=== PATIENT | female | born 1975 | race Caucasian/White ===

== ENCOUNTER → 2019-05-15 13:52 | Outpatient (BNVA) | payer MEDICARE, MEDICAID, SELFPAY | PROVIDERS: Family Provider Family Medicine; PCP Family Medicine; Visit Provider Nurse Practitioner Psychiatric/Mental Health | DX: F31.74 Bipolar disorder, in full remission, most recent episode manic (principal); F43.22 Adjustment disorder with anxiety | CPT/HCPCS: 99213 ==

== ENCOUNTER → 2019-06-08 08:43 | Outpatient (BNVA) | payer MEDICARE, MEDICAID, SELFPAY | PROVIDERS: Family Provider Family Medicine; PCP Family Medicine; Referring Provider Family Medicine; Visit Provider Otolaryngology | DX: J35.01 Chronic tonsillitis (principal); J03.91 Acute recurrent tonsillitis, unspecified; J35.8 Other chronic diseases of tonsils and adenoids | CPT/HCPCS: 99213; 99214 ==

== ENCOUNTER → 2019-06-22 08:47 | Outpatient (BNVA) | payer MEDICARE, MEDICAID, SELFPAY | PROVIDERS: Family Provider Family Medicine; PCP Family Medicine; Visit Provider Nurse Practitioner Psychiatric/Mental Health | DX: F31.74 Bipolar disorder, in full remission, most recent episode manic (principal); F43.22 Adjustment disorder with anxiety | CPT/HCPCS: 99213 ==

== ENCOUNTER → 2019-06-29 13:59 | Outpatient (BNVA) | payer MEDICARE, MEDICAID, SELFPAY | PROVIDERS: Family Provider Family Medicine; PCP Family Medicine; Referring Provider Otolaryngology; Visit Provider Specialist | DX: G43.711 Chronic migraine without aura, intractable, with status migrainosus (principal); S06.9X9D Unspecified intracranial injury with loss of consciousness of unspecified duration, subsequent encounter; X58.XXXD Exposure to other specified factors, subsequent encounter | CPT/HCPCS: 99204; 99214 ==

== ENCOUNTER → 2019-07-17 13:23 | Outpatient (BNVA) | payer MEDICARE, MEDICAID, SELFPAY | PROVIDERS: Family Provider Family Medicine; PCP Family Medicine; Visit Provider Nurse Practitioner Psychiatric/Mental Health | DX: F31.74 Bipolar disorder, in full remission, most recent episode manic (principal); F43.22 Adjustment disorder with anxiety | CPT/HCPCS: 99213 ==

== ENCOUNTER 2019-07-18 05:49 | Day surgery (SDC) | payer MEDICARE, MEDICAID, SELFPAY ==
[2019-07-14 13:24] VITALS: BMI 31.2
--- NOTE | 2019-07-14 13:42 | ANES.PREANE2 ---
Pre-Anesthetic Assessment Pre-Anesthetic Assessment: Height/Weight: Height 1.52 m Weight 72.575 kg Preop Diagnosis: Undesired Fertility Proposed Procedure: Operation Date: 07/18/19 07:55 Proposed Procedures p Yoselyn Shankar,Removal of Tubes Sterilization 23463 Z30.2(Not Applicable) - Gregorio Pang MD Familial anesthetic complications: PONV - patient will pick scopolamine patch, she has severe PONV - highly consider TIVA Social: Social History: No alcohol and No tobacco Exam: Pre-Anes Outpt Exam: alert, oriented x 3, clear to auscultation bilaterally and regular rate & rhythm Airway: Cervical ROM: WNL MP: 1 Dentition: Full Additional comments: Large tonsils Patient sings and is worried about her voice Pulmonary: Pulmonary: None reported CV/HEM: CV/HEM: None reported : : None reported Hepatic: Hepatic: None reported GI: GI: None reported Metabolic: Metabolic: Thyroid Comments: has had thyroid storm Musc/skel: Musc/skel: Lower Back Pain Comments: can develop Extrapyramidal symptoms Neuropsych: Neuropsych: 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
[2019-07-18] VITALS (10 sets, daily range): BP systolic 94–135; BP diastolic 56–89; PULSE 60–89; RESP 14–20; TEMP 36.8–36.9; O2SAT 98–100
[2019-07-18 05:58] LABS: OR HCG Qualitative Urine Negative (Negative)
--- NOTE | 2019-07-18 06:17 | P.ANESUD_ITS ---
Pre-Anesthetic Update Pre-Anesthetic Assessment: Date of Surgery/Procedure: 07/18/19 Preop Mariah gnosis: Undesired Fertility Proposed Procedure: Operation Date: 07/18/19 07:00 Proposed Procedures p Yoselyn Shankar,Removal of Tubes Sterilization 54642 Z30.2(Not Applicable) - Gregorio Pang MD Any changes to Pre-Anesthetic Assessment?: No Last Intake: Intake NPO > 8 hrs Last Liquid Date 07/18/19 Last Liquid Time 00:00 Last Solid Date 07/18/19 Last Solid Time 00:00 Labs Last 48hrs: Laboratory Results - last 48 hr 07/18/19 05:51 Urine HCG, Qual Negative Vitals: Temperature 98.3 F 07/18/19 06:07 Temperature Source Tympanic 07/18/19 06:07 Pulse Rate 70 07/18/19 06:07 Pulse Rhythm 07/18/19 06:07 Pulse Strength 3+ Normal 07/18/19 06:07 Respiratory Rate 18 07/18/19 06:07 Blood Pressure 94/56 07/18/19 06:07 Blood Pressure Maria M n 68 07/18/19 06:07 Pulse Oximetry 99 07/18/19 06:07 Oxygen Delivery Me thod 07/18/19 06:07 Exam: Pre-Anes Outpt Exam: alert, oriented x 3, clear to auscultation bi laterally and regular rate & rhythm Other Pertinent Information: Other Pertinent Information: Took levothyroxine this morning Cardiac Studies: No Data to Display
[2019-07-18] MEDS: ketorolac 30 mg/mL INJ IVP (06:35)
[2019-07-18] MEDS: sodium chloride 0.9% 1,000 ML 30 ML IV (06:35)
[2019-07-18 06:40] LABS: Basophils % 0.5 %; Eosinophils # 0.1 10^3/uL (0.0-0.8); Eosinophils % 1.1 %; Hematocrit 34.6 % (37.0-47.0); Hemoglobin 11.5 g/dL (11.5-15.3); Lymphocytes # 2.8 10^3/uL (0.8-4.8); Lymphocytes % 44.4 %; Mean Corpuscular HGB Conc 33.2 g/dL (30.0-36.0); Mean Corpuscular Volume 84.2 fL (81-99); Monocytes # 0.4 10^3/uL (0.2-0.9); Monocytes % 6.7 %; Neutrophils % 47.3 %; Nucleated Red Blood Cells % 0 %; Platelet Count 251 10^3/cmm (130-400); Red Blood Count 4.11 10^6/uL (4.1-5.3); White Blood Count 6.2 10^3/uL (4.0-10.0)
--- NOTE | 2019-07-18 06:48 | W.PM.OPSUD ---
Surgery/Procedure H&P Update DATE OF PROCEDURE: July 18, 2019 DATE H&P PERFORMED: 07/14/19 H&P UPDATE INFORMATION: I have reviewed H&P completed within last 30 days, I have examined patient prior to procedure, No changes to prior documentation and [place] [facility] date indicated PREOP DIAGNOSIS: Undesired Fertility PLANNED PROCEDURE: Operation Date: 07/18/19 07:00 Proposed Procedures p Lap Fulg,Removal of Tubes Sterilization 08181 Z30.2(Not Applicable) - Gregorio Pang MD
--- NOTE | 2019-07-18 08:02 | P.OP_ITS ---
Operative Report Date of procedure: July 18, 2019 Pre-op Diagnosis: Undesired Fertility Post-op Diagnosis: Undesired fertility Procedure Done: Laparoscopic bilateral tubal fulguration with complete salpingectomy Specimens removed/disposition: Right and left fallopian tubes Surgeon: Gregorio Pang Software Tools Developer: JAYNA Olvera Anesthesia: General Estimated blood loss (mL): 10 IV fluids (mL): 900 Complications: None Brief History: Patient is a 43-year-old white female 2, para 0-0-2-0 who presented to the office on 06/02/2019 requesting sterilization. She stated that she did not want any children and wanted to proceed with sterilization. Medicaid consent form was signed on 06/02/2019. She returned to the office on 07/14/2019 stating that she still wished to proceed with sterilization. Permanence of the procedure was reviewed with her. Inability of complete removal of tubes to be reversed was reviewed. Risks of the procedure including failure rates and risk for ectopic were reviewed. Questions were answered. She still wished to proceed with complete removal of tubes. Procedure: The patient was taken to the operating room where general anesthesia was obtained. She was prepped and draped in the usual sterile fashion in the dorsal supine position with legs in Zechariah style stirrups. Sequential compression boots were placed prior to starting the case. Bladder was drained and exam under anesthesia was performed. She was found to have first-degree uterine prolapse. Weighted speculum was placed in the vagina and the cervix was grasped with a single-tooth tenaculum. A ZUMI was placed. The infraumbilical region was injected with 2% lidocaine with epinephrine. Skin incision was made with a knife in the lower edge of the navel and a size 5 trocar and sheath were inserted under direct visualization using an Optiview type technique. Trocar was removed and replaced with just the laparoscope confirming intra-abdominal placement. The anterior abdominal wall was inspected and noted to be free of adhesions. In the right and left lower quadrants lateral to the inferior epigastric vessels, the skin was injected with 2% lidocaine with epinephrine. Skin incision was made with the knife and a 5 mm trocar and sheath were inserted under direct visualization at each site. The pelvis was thoroughly inspected. Both tubes and ovaries appeared normal. She had a few filmy adhesions of the sigmoid along the left pelvic brim. She was also noted to have an anterior subserosal uterine fibroid. Using the Voyant sealing device, the left mesosalpinx was sealed and cut along the length of the fallopian tube. At the cornual region of the uterus, the fallopian tube was sealed and cut, completely excising the tube. The tube was removed through the port. Using the Voyant sealing device, the right mesosalpinx was sealed and cut along the length of the fallopian tube. At the cornual region of the uterus, the fallopian tube was sealed and cut, completely excising the tube. Tube was removed through the port. The dissection areas were noted to be hemostatic. The abdomen was deflated and the ports removed. The trocar sites were reapproximated with Dermabond. The ZUMI was removed and there was minimal bleeding from the tenaculum site. Patient tolerated the procedures well. Sponge and needle counts were correct. DRAINS: None FINDINGS: First degree uterine prolapse. Anterior subserosal uterine fibroid present. Normal-appearing tubes and ovaries. Filmy adhesions of the sigmoid along the left pelvic brim. POSTOPERATIVE STATUS: The patient was transferred to the recovery room in satisfactory condition. DISPOSITION: Patient was to be discharged home when criteria was met. FOLLOWUP APPOINTMENT: Patient was to followup in my office on 08/03/2019. PRESCRIPTIONS: She had prescriptions at home for: Tramadol 50 mg, 1 to 2 tablets every 6 hours as needed for pain OTC ibuprofen 200 mg, 4 tablets 3 times a day as needed for pain She was to continue her usual home medications.
--- NOTE | 2019-07-18 08:23 | SUR.PHASEI ---
0830 ORAL AIRWAY REMOVED, PT ABLE TO MAINTAIN PATENT AIRWAY
[2019-07-18] MEDS: TRAMadol 50 mg Tablet PO (09:07)
== END 2019-07-18 10:22 | disposition home or self-care (01) ==
PROVIDERS: Family Provider Family Medicine; PCP Family Medicine; Visit Provider Obstetrics & Gynecology
PROC: (CPT 58661; principal; 2019-07-18 07:00)
DX: Z30.2 Encounter for sterilization (principal); Z82.49 Family history of ischemic heart disease and other diseases of the circulatory system; Z83.3 Family history of diabetes mellitus; G62.9 Polyneuropathy, unspecified; Z86.73 Personal history of transient ischemic attack (TIA), and cerebral infarction without residual deficits
CPT/HCPCS: 58670; 12345; 36415; 81025; 84703; 85025; 88302; 96374; J0131; J1100; J1200; J1885; J2001; J2250; J2405; J2704; J2710; J2765; J3010; J3490; J7030

== ENCOUNTER 2019-07-25 20:41 | Emergency (ER) | payer MEDICARE, MEDICAID, SELFPAY ==
[2019-07-25 20:57] VITALS: BP 140/77; PULSE 103; RESP 16; TEMP 37.1; O2SAT 99; BMI 31.2
[2019-07-25 23:24] VITALS: BP 96/68; PULSE 87; RESP 16; O2SAT 98
--- NOTE | 2019-07-26 02:08 | ED_ITS ---
HPI - Allergic Reaction General: Chief complaint: Allergic Reaction Stated complaint: possible infection Time Seen by Provider: 07/26/19 01:22 Source: patient Mode of arrival: ambulatory Limitations: no limitations History of Present Illness: HPI narrative: Patient is a very pleasant 43-year-old female who presents to ED today wanting evaluation for some redness surrounding her surgical incisions. Patient underwent laparoscopic bilateral tubal fulguration with complete salpingectomy by Dr. Pang approximately a week ago. Patient states over the past few days she has noticed redness surrounding her surgical incisions. She reports wound dehiscence to her umbilical incision- she saw Dr. Pang as a postop for this. At that visit patient had some bruising like lugo around her incisions but states since then they have gotten red and are intensely pruritic. She is not having any abdominal pain. No fever/chills. MD complaint: allergic reaction Onset (ago): day(s) Associated symptoms: Reports no associated symptoms; Deny abdominal pain, nausea or vomiting Review of Systems Const: Denies: fever, chills, body aches, change in appetite, change in weight or fatigue GI: Denies: abdominal pain, nausea, vomiting or diarrhea Musc: Denies: neck pain or back pain Skin/Breast: Reports: itching and other (redness around surgical incisions) PFSH ED PFSH: Social History Smoking and tobacco status: never smoked Alcohol intake: former History of recent travel: No Female Reproductive History: Date of last menstrual period: 06/15/19 Physical Exam Const: COMMON NORMALS: no apparent distress, average body habitus, oriented x3, no limitations, healthy appearing, alert and well nourished GI: OTHER: Patient has rings of erythema around both of her inferior incisions. The erythema does not appear cellulitic. It is not warm to touch. There is no drainage from the incisions. She does have some erythema as well around her umbilical incision where she has overlying tape. Patient tells me she does have a history allergic reactions to adhesives. Neuro: COMMON NORMALS: oriented x3 SENSORIUM/ORIENTATION: Yes alert Course Vital Signs: Vital signs: Vital Signs Temperature 98.8 F 07/25/19 20:57 Pulse Rate 87 07/25/19 23:24 Respiratory Rate 16 07/25/19 23:24 Blood Pressure 96/68 07/25/19 23:24 Pulse Oximetry 98 07/25/19 23:24 MDM - Allergic Reaction MDM Narrative: Medical decision making narrative: Patient has a history of allergy to adhesives, she has redness around all 3 surgical incisions, redness does not appear cellulitic, she does not complain of pain but rather of extreme itchiness. Given these factors I do not feel patient has any form of infection at this time. Most likely she is just reacting to the surgical glue used. Explained to patient this should hopefully fall off in the next couple of days. She may try Benadryl and hydrocortisone cream to help with the itching as well as applying cold compresses. Recommend she go ahead and alert Dr. Pang tomorrow so he is aware and could see patient if needed. Discharge Plan Discharge Patient Disposition: Home, Self-Care Clinical Impression: Allergy to adhesive Condition: Stable Prescriptions: No Action Metamucil 3.4 gram/5.4 gram powder 1 tbsp PO BID RF: 0 benztropine 1 mg tablet 1 mg PO DAILY PRN (Reason: Extrapyramidal Effects/Symptoms) RF: 0 melatonin 3 mg capsule 2 mg PO .QHS PRN (Reason: sleep) RF: 0 levothyroxine 112 mcg capsule 112 mcg PO DAILY RF: 0 liothyronine 5 mcg tablet 5 mcg PO TID RF: 0 naltrexone 50 mg tablet 2 mg PO .QHS RF: 0 cholecalciferol (vitamin D3) 50,000 unit capsule 50,000 unit PO .weekly RF: 0 polyethylene glycol 3350 [Miralax] 17 gram/dose powder 17 gm PO BID RF: 0 Invega Sustenna 39 mg/0.25 mL syringe 39 mg IM .Q4 weeks Qty: 0.25 RF: 12 scopolamine base 1 mg over 3 days patch 3 day 1 patch TRANSDERMA Q3D Qty: 1 RF: 0 tramadol 50 mg tablet See Rx Instructions PO .every 6 hours PRN (Reason: pain) Qty: 30 RF: 0 Linzess 145 mcg capsule 145 mcg PO .NOON Qty: 30 RF: 3 Discharge Orders: Discharge Order (Routine); Ordered 07/26/19 Ordered By: Rossy Brumfield Referrals: Kirill Jarquin [Primary Care Provider] - Discharge Diet: Usual diet Discharge Activity: Increase activity as tolerated Activity Restrictions/Additional Instructions: As discussed you may try Benadryl for the itching. Cold compresses (not directly on your skin) may also help. You can try a small amount of hydrocortisone cream. Please contact Dr. Pang tomorrow so he is aware. Coding Level of Care Code ED Printing Machine Operator Tape Rules for Mckenna Angelo
[2019-07-26 02:43] VITALS: BP 124/77; PULSE 89; RESP 18; O2SAT 97
[2019-07-26 02:44] VITALS: BP 124/77; PULSE 89; RESP 18; O2SAT 97
== END 2019-07-26 02:48 | disposition home or self-care (01) ==
PROVIDERS: Emergency Provider Physician Assistant; Family Provider Family Medicine; PCP Family Medicine
DX: T78.49XA Other allergy, initial encounter (principal); X58.XXXA Exposure to other specified factors, initial encounter; Z98.890 Other specified postprocedural states
CPT/HCPCS: 12345; 99281

== ENCOUNTER → 2019-08-14 08:48 | Outpatient (BNVA) | payer MEDICARE, MEDICAID, SELFPAY | PROVIDERS: Family Provider Family Medicine; PCP Family Medicine; Visit Provider Nurse Practitioner Psychiatric/Mental Health | DX: F31.74 Bipolar disorder, in full remission, most recent episode manic (principal); F43.22 Adjustment disorder with anxiety | CPT/HCPCS: 99213 ==

== ENCOUNTER → 2019-09-11 07:28 | Outpatient (BNVA) | payer MEDICARE, MEDICAID, SELFPAY | PROVIDERS: Family Provider Family Medicine; PCP Family Medicine; Visit Provider Nurse Practitioner Psychiatric/Mental Health | DX: F31.74 Bipolar disorder, in full remission, most recent episode manic (principal); F43.22 Adjustment disorder with anxiety | CPT/HCPCS: 99213 ==

== ENCOUNTER → 2019-10-09 07:36 | Outpatient (BNVA) | payer MEDICARE, MEDICAID, SELFPAY | PROVIDERS: Family Provider Family Medicine; PCP Family Medicine; Visit Provider Nurse Practitioner Psychiatric/Mental Health | DX: F31.74 Bipolar disorder, in full remission, most recent episode manic (principal); F43.22 Adjustment disorder with anxiety | CPT/HCPCS: 99214 ==

== ENCOUNTER → 2019-11-06 07:30 | Outpatient (BNVA) | payer MEDICARE, MEDICAID, SELFPAY | PROVIDERS: Family Provider Family Medicine; PCP Family Medicine; Visit Provider Nurse Practitioner Psychiatric/Mental Health | DX: F43.22 Adjustment disorder with anxiety (principal); F31.74 Bipolar disorder, in full remission, most recent episode manic | CPT/HCPCS: 96372; 99214 ==

== ENCOUNTER → 2019-12-04 08:09 | Outpatient (BNVA) | payer MEDICARE, MEDICAID, SELFPAY | PROVIDERS: Family Provider Family Medicine; PCP Family Medicine; Visit Provider Nurse Practitioner Psychiatric/Mental Health | DX: F31.74 Bipolar disorder, in full remission, most recent episode manic (principal); F43.22 Adjustment disorder with anxiety | CPT/HCPCS: 96372; 99213 ==

== ENCOUNTER → 2020-01-01 08:12 | Outpatient (BNVA) | payer MEDICARE, MEDICAID, SELFPAY | PROVIDERS: Family Provider Family Medicine; PCP Family Medicine; Visit Provider Nurse Practitioner Psychiatric/Mental Health | DX: F31.74 Bipolar disorder, in full remission, most recent episode manic (principal); F43.22 Adjustment disorder with anxiety | CPT/HCPCS: 96372; 99213 ==

== ENCOUNTER → 2020-01-29 08:00 | Outpatient (BNVA) | payer MEDICARE, MEDICAID, SELFPAY | PROVIDERS: Family Provider Family Medicine; PCP Family Medicine; Visit Provider Nurse Practitioner Psychiatric/Mental Health | DX: F43.22 Adjustment disorder with anxiety (principal); F31.74 Bipolar disorder, in full remission, most recent episode manic | CPT/HCPCS: 96372; 99213 ==

== ENCOUNTER → 2020-02-26 08:05 | Outpatient (BNVA) | payer MEDICARE, MEDICAID, SELFPAY | PROVIDERS: Family Provider Family Medicine; PCP Family Medicine; Visit Provider Nurse Practitioner Psychiatric/Mental Health | DX: F31.74 Bipolar disorder, in full remission, most recent episode manic (principal); F43.22 Adjustment disorder with anxiety | CPT/HCPCS: 96372; 99213 ==

== ENCOUNTER → 2020-03-25 08:02 | Outpatient (BNVA) | payer MEDICARE, MEDICAID, SELFPAY | PROVIDERS: Family Provider Family Medicine; PCP Family Medicine; Visit Provider Nurse Practitioner Psychiatric/Mental Health | DX: F31.74 Bipolar disorder, in full remission, most recent episode manic (principal); F43.22 Adjustment disorder with anxiety | CPT/HCPCS: 96372; 99213 ==

== ENCOUNTER → 2020-04-23 08:04 | Outpatient (BNVA) | payer MEDICARE, MEDICAID, SELFPAY | PROVIDERS: Family Provider Family Medicine; PCP Family Medicine; Visit Provider Nurse Practitioner Psychiatric/Mental Health | DX: F31.74 Bipolar disorder, in full remission, most recent episode manic (principal); F43.22 Adjustment disorder with anxiety | CPT/HCPCS: 96372; 99213 ==

== ENCOUNTER → 2020-05-23 08:00 | Outpatient (BNVA) | payer MEDICARE, MEDICAID, SELFPAY | PROVIDERS: Family Provider Family Medicine; PCP Family Medicine; Visit Provider Nurse Practitioner Psychiatric/Mental Health | DX: F43.22 Adjustment disorder with anxiety (principal); F31.74 Bipolar disorder, in full remission, most recent episode manic | CPT/HCPCS: 96372; 99213 ==

== ENCOUNTER → 2020-06-18 08:47 | Outpatient (BNVA) | payer MEDICARE, MEDICAID, SELFPAY | PROVIDERS: Family Provider Family Medicine; PCP Family Medicine; Visit Provider Nurse Practitioner Psychiatric/Mental Health | DX: F31.74 Bipolar disorder, in full remission, most recent episode manic (principal); F43.22 Adjustment disorder with anxiety | CPT/HCPCS: 96372; 99214 ==

== ENCOUNTER → 2020-07-16 07:57 | Outpatient (BNVA) | payer MEDICARE, MEDICAID, SELFPAY | PROVIDERS: Family Provider Family Medicine; PCP Family Medicine; Visit Provider Nurse Practitioner Psychiatric/Mental Health | DX: F31.74 Bipolar disorder, in full remission, most recent episode manic (principal); F43.22 Adjustment disorder with anxiety | CPT/HCPCS: 96372; 99214 ==

== ENCOUNTER 2020-07-22 11:39 | Outpatient (CLI) | payer MEDICARE, MEDICAID, SELFPAY ==
--- NOTE | 2020-07-22 11:44 | MM_ITS ---
WS: [id number] BILATERAL DIGITAL SCREENING MAMMOGRAPHY WITH CAD CLINICAL INFORMATION: SCREENING HISTORY: Screening mammogram. No current complaints. COMPARISON: None. TECHNIQUE: Bilateral CC and MLO views. FINDINGS: Scattered fibroglandular densities bilaterally. Irregular spiculated breast tissue upper outer right breast may be due to prior breast infection and aspiration 12:00 position. Recommend spot compression views of this area and ultrasound for further evaluation considering no prior comparisons. Unremarkable left breast MM/[place] [id number] IMPRESSION: BI-RADS: 0-Incomplete: Need additional imaging evaluation FOLLOW UP: Need Additional Imaging Recommend right breast diagnostic mammography and ultrasound.
== END 2020-07-22 11:40 | disposition home or self-care (01) ==
LOC: RADSHAW 11:42
PROVIDERS: PCP Family Medicine; Visit Provider Nurse Practitioner
DX: Z12.31 Encounter for screening mammogram for malignant neoplasm of breast (principal)
CPT/HCPCS: 77067

== ENCOUNTER → 2020-08-13 07:58 | Outpatient (BNVA) | payer MEDICARE, MEDICAID, SELFPAY | PROVIDERS: Visit Provider Nurse Practitioner Psychiatric/Mental Health | DX: F31.74 Bipolar disorder, in full remission, most recent episode manic (principal); F43.22 Adjustment disorder with anxiety | CPT/HCPCS: 96372; 99214 ==

== ENCOUNTER 2020-08-16 12:44 | Outpatient (CLI) | payer MEDICARE, MEDICAID, SELFPAY ==
--- NOTE | 2020-08-16 12:58 | US_ITS ---
WS: [id number] ADDITIONAL VIEWS RIGHT BREAST RIGHT breast ultrasound, limited HISTORY: ABNORMAL MAMMOGRAM OF RIGHT BREAST COMPARISON: 07/22/2020 Compression views right CC and MLO projection. True ML also submitted. Asymmetry persists seen on the RIGHT MLO projection with spot compression views. On the CC projection there is a very thin linear density. RIGHT breast ultrasound, limited. Ultrasound directed to the upper outer quadrant of the RIGHT breast anteriorly. There is a small cyst at 9:00, 5 cm from the nipple. There is no dense area of fibrosis or shadowing. No mass identified. US/US breast RT limited* [id number] Impression: BI-RADS: 3-Probably Benign FOLLOW-UP: 6 Month Follow-up Due to the prominent asymmetry seen on the RIGHT MLO projection short-term foll ow-up is recommended to ensure stability. No significant abnormality was noted by ultrasound. Favor this is probably a benign area of fibrosis or scar. This d oes not appear to correspond with the prior area of abscess drainage.
== END 2020-08-16 12:45 | disposition home or self-care (01) ==
LOC: RADSHAW 12:46
PROVIDERS: Visit Provider Nurse Practitioner
DX: R92.8 Other abnormal and inconclusive findings on diagnostic imaging of breast (principal); N64.89 Other specified disorders of breast
CPT/HCPCS: 76642; 77065

== ENCOUNTER → 2020-09-12 13:26 | Outpatient (BNVA) | payer MEDICARE, MEDICAID, SELFPAY | PROVIDERS: Visit Provider Nurse Practitioner Psychiatric/Mental Health | DX: F31.74 Bipolar disorder, in full remission, most recent episode manic (principal); F43.22 Adjustment disorder with anxiety | CPT/HCPCS: 96372; 99214 ==

== ENCOUNTER → 2020-10-08 07:53 | Outpatient (BNVA) | payer MEDICARE, MEDICAID, SELFPAY | PROVIDERS: Visit Provider Nurse Practitioner Psychiatric/Mental Health | DX: F31.74 Bipolar disorder, in full remission, most recent episode manic (principal); F43.22 Adjustment disorder with anxiety | CPT/HCPCS: 96372; 99214 ==

== ENCOUNTER → 2020-11-05 08:01 | Outpatient (BNVA) | payer MEDICARE, MEDICAID, SELFPAY | PROVIDERS: Visit Provider Nurse Practitioner Psychiatric/Mental Health | DX: F31.74 Bipolar disorder, in full remission, most recent episode manic (principal); F43.22 Adjustment disorder with anxiety | CPT/HCPCS: 96372; 99214 ==

== ENCOUNTER → 2020-12-03 07:50 | Outpatient (BNVA) | payer MEDICARE, MEDICAID, SELFPAY | PROVIDERS: Visit Provider Nurse Practitioner Psychiatric/Mental Health | DX: F31.74 Bipolar disorder, in full remission, most recent episode manic (principal); Z79.899 Other long term (current) drug therapy; F43.22 Adjustment disorder with anxiety | CPT/HCPCS: 96372; 99214 ==

== ENCOUNTER → 2020-12-30 12:42 | Outpatient (BNVA) | payer MEDICARE, MEDICAID, SELFPAY | PROVIDERS: Visit Provider Nurse Practitioner Psychiatric/Mental Health | DX: F31.74 Bipolar disorder, in full remission, most recent episode manic (principal); F43.22 Adjustment disorder with anxiety | CPT/HCPCS: 96372; 99214 ==

== ENCOUNTER → 2021-01-27 12:39 | Outpatient (BNVA) | payer MEDICARE, MEDICAID, SELFPAY | PROVIDERS: Visit Provider Nurse Practitioner Psychiatric/Mental Health | DX: F31.74 Bipolar disorder, in full remission, most recent episode manic (principal); F43.22 Adjustment disorder with anxiety | CPT/HCPCS: 96372; 99214 ==

== ENCOUNTER → 2021-02-25 08:05 | Outpatient (BNVA) | payer MEDICARE, MEDICAID, SELFPAY | PROVIDERS: Family Provider Family Medicine; PCP Family Medicine; Visit Provider Nurse Practitioner Psychiatric/Mental Health | DX: F31.74 Bipolar disorder, in full remission, most recent episode manic (principal); F43.22 Adjustment disorder with anxiety | CPT/HCPCS: 96372; 99214 ==

== ENCOUNTER → 2021-03-24 12:34 | Outpatient (BNVA) | payer MEDICARE, MEDICAID, SELFPAY | PROVIDERS: Family Provider Family Medicine; PCP Family Medicine; Visit Provider Nurse Practitioner Psychiatric/Mental Health | DX: F31.74 Bipolar disorder, in full remission, most recent episode manic (principal); F43.22 Adjustment disorder with anxiety | CPT/HCPCS: 96372; 99214 ==

== ENCOUNTER → 2021-04-25 10:43 | Outpatient (BNVA) | payer MEDICARE, MEDICAID, SELFPAY | PROVIDERS: Family Provider Family Medicine; PCP Family Medicine; Visit Provider Nurse Practitioner Psychiatric/Mental Health | DX: F31.74 Bipolar disorder, in full remission, most recent episode manic (principal); F43.22 Adjustment disorder with anxiety | CPT/HCPCS: 96372; 99214 ==

== ENCOUNTER → 2021-05-23 10:43 | Outpatient (BNVA) | payer MEDICARE, MEDICAID, SELFPAY | PROVIDERS: Family Provider Family Medicine; PCP Family Medicine; Visit Provider Nurse Practitioner Psychiatric/Mental Health | DX: F31.74 Bipolar disorder, in full remission, most recent episode manic (principal); F43.22 Adjustment disorder with anxiety | CPT/HCPCS: 96372; 99214 ==

== ENCOUNTER → 2021-06-20 10:38 | Outpatient (BNVA) | payer MEDICARE, MEDICAID, SELFPAY | PROVIDERS: Family Provider Family Medicine; PCP Family Medicine; Visit Provider Nurse Practitioner Psychiatric/Mental Health | DX: F31.74 Bipolar disorder, in full remission, most recent episode manic (principal); F43.22 Adjustment disorder with anxiety | CPT/HCPCS: 99214 ==

== ENCOUNTER 2021-07-14 11:04 | Emergency (ER) | payer MEDICARE, MEDICAID, SELFPAY ==
[2021-07-14 11:24] VITALS: BP 112/75; PULSE 82; RESP 16; TEMP 36.3; O2SAT 100; BMI 34.3
--- NOTE | 2021-07-14 11:38 | W.ED.GENADLT ---
HPI - General Adult General: Chief complaint: General Medical Stated complaint: breast pain Time Seen by Provider: 07/14/21 11:32 History of Present Illness: 45-year-old female with family history of breast cancer, right-sided breast swelling prior presenting to the emergency room for evaluation of left-sided breast pain and redness x 5 days. Patient tells me that 5 days ago she was sleeping on her left breast and her pushed down on her breast and that. Since then, she has had breast swelling and pain. Patient reports that her breast feels firm red and swollen. Patient denies any fever/chills, cough, runny nose/nausea/vomiting, abdominal complaints, chest pain, shortness of breath or other focal complaints at this time. Patient denies any history IV drug use, diabetes, or immunosuppression. Patient has no history of prostatic breast implants. Onset: 5 days ago Duration:ongoing Location:home Severity: mild/moderate Associated symptoms: Deny chest pain, dyspnea, nausea, rash, palpitations or vomiting Review of Systems Const: Denies: fever(s) or chills Eyes: Denies: change in vision ENMT: Denies: mouth pain Card: Denies: chest pain or palpitations Resp: Denies: dyspnea or non-productive cough GI: Denies: abdominal pain, nausea, vomiting or diarrhea : Denies: dysuria Musc: Reports: other (+L breast pain); Denies: extremity pain Skin/Breast: Denies: rash or new lesions Neuro: Denies: weakness in extremities Psych: Reports: other (Normal mood) Judah/Lymph: Denies: easy bruising PFSH ED PFSH: Medical History Adjustment disorder with anxiety relationship with mother Bipolar disorder, in full remission, most recent episode manic Chronic constipation Hypothyroidism Psychiatric care Surgical History History of bilateral tubal ligation (07/18/19) Laparoscopic bilateral complete salpingectomy. Per[place]. Pang [place] [facility] [place], [place] History of wisdom tooth extraction Hx of appendectomy (05/08/18) Laparoscopic. Performed by Dr. Roy at [facility] [place] [facility] in [place], [place] S/P cholecystectomy (09/01/17) Laparoscopy S/P dilation and curettage (~1999) Treatment of miscarriage. S/P excision of lipoma (10/13/12) Left axilla. Performed by Dr. Gillespie. Status post incision and drainage (10/28/12) Left axillary abscess. Performed by Dr. Ramirez in ER at [facility] [place] [facility] in [place], [place] Family History Other CAD (coronary artery disease) Diabetes Heart disease Social History Smoking and tobacco status: never smoked Alcohol intake: former Lives independently: Yes Marital status: Single History of recent travel: No Female Reproductive History: Date of last menstrual period: 06/15/19 Physical Exam Const: COMMON NORMALS: alert HENMT: COMMON NORMALS: atraumatic HEAD & SCALP: atraumatic MOUTH: moist mucous membranes not abnormal Eye: COMMON NORMALS: EOMs intact bilaterally and conjunctivae normal CONJUNCTIVA: Yes conjunctivae normal Neck/C-Spine: COMMON NORMALS: full ROM and supple Chest: OTHER: +Exam supervised by Sanjuana BRICE. +L breast firm indurated lesion with erythema/edema and ttp at the 3 oclock position Resp: COMMON NORMALS: normal respiratory effort and clear to auscultation bilaterally AUSCULTATION: clear to auscultation bilaterally Cardio: COMMON NORMALS: regular rate RATE: regular rate GI: COMMON NORMALS: Soft to palpation and non-tender PALPATION: Yes Soft to palpation Extremity: COMMON NORMALS: full ROM Neuro: SENSORIUM/ORIENTATION: Yes alert MOTOR EXAM: No Abnormal motor strength present and Other motor observations present (no focal motor deficits) Psych: COMMON NORMALS: speech normal SPEECH: Yes normal speech MOOD & AFFECT: Yes euthymic mood Course Vital Signs: Vital signs: Vital Signs Temperature 97.4 F L 07/14/21 11:24 Pulse Rate 82 07/14/21 11:24 Respiratory Rate 16 07/14/21 11:24 Blood Pressure 112/75 07/14/21 11:24 Pulse Oximetry 100 07/14/21 11:24 MDM - General Adult Medical Decision Making 45-year-old female with history of right-sided breast pain presenting to the emergency room for evaluation of left-sided breast firmness/swelling/redness. On exam, patient is found to have an area of induration with fluctuance erythema and edema. Bedside ultrasound showed no visible collection. No visible cobblestoning was observed on US. White count within normal limit. Given erythema tenderness, induration, this could be early signs of cellulitis. Patient does not have any history of immune suppression or pain out of proportion to suggest this is necrotizing soft tissue infection. I have given patient a prescription for clindamycin given her allergy to penicillins. Patient is instructed to follow-up closely with her primary care provider for reassessment to ensure improvement in symptoms. Rx clindamycin 300 mg 3 times daily x7 days, probiotics twice daily x7 days, and Tylenol as needed pain Disposition: Discharge. Patient counseled regarding diagnostic impression, treatment plan. Patient given ED strict return precautions to return for continuation, worsening, or development of new symptoms. Instructed to f/u w/ PCP regarding symptoms today. Patient verbalized understanding. Lab Data : 07/14/21 12:05 07/14/21 12:05 Laboratory Results WBC 8.0 10^3/uL (4.0-10.0) 07/14/21 12:05 RBC 4.12 10^6/uL (4.1-5.3) 07/14/21 12:05 Hgb 12.1 g/dL (11.5-15.3) 07/14/21 12:05 Hct 37.2 % (37.0-47.0) 07/14/21 12:05 MCV 90.3 fl (81-99) 07/14/21 12:05 MCH 29.4 pg (28.0-34.0) 07/14/21 12:05 MCHC 32.5 g/dL (30.0-36.0) 07/14/21 12:05 RDW 12.3 % (12.1-15.1) 07/14/21 12:05 Plt Count 268 10^3/cmm (130-400) 07/14/21 12:05 MPV 8.4 fL (7.4-10.4) 07/14/21 12:05 Neut % (Auto) 65.1 % 07/14/21 12:05 Lymph % (Auto) 24.8 % 07/14/21 12:05 [place] % (Auto) 7.1 % 07/14/21 12:05 Eos % (Auto) 2.2 % 07/14/21 12:05 Baso % (Auto) 0.6 % 07/14/21 12:05 Neut # (Auto) 5.21 10^3/uL (1.8-7.7) 07/14/21 12:05 Lymph # (Auto) 2.0 10^3/uL (0.8-4.8) 07/14/21 12:05 [place] # (Auto) 0.6 10^3/uL (0.2-0.9) 07/14/21 12:05 Eos # (Auto) 0.2 10^3/uL (0.0-0.8) 07/14/21 12:05 Baso # (Auto) 0.1 10^3/uL (0.0-0.1) 07/14/21 12:05 Nucleated RBC % (auto) 0 % 07/14/21 12:05 Nucleated RBCs # 0.0 /100WBC 07/14/21 12:05 Sodium 138 mmol/L (136-145) 07/14/21 12:05 Potassium 3.8 mmol/L (3.5-5.1) 07/14/21 12:05 Chloride 102 mmol/L (98-107) 07/14/21 12:05 Carbon Dioxide 25 mmol/L (22-29) 07/14/21 12:05 Anion Gap 14.8 (5-19) 07/14/21 12:05 BUN 15 mg/dL (6-20) 07/14/21 12:05 Creatinine 0.7 mg/dL (0.5-0.9) 07/14/21 12:05 GFR Calculation 90.9 mL/min (90-130) 07/14/21 12:05 Glucose 102 mg/dL (65-115) 07/14/21 12:05 Calculated Osmolality 287 mOsm/kg (285-295) 07/14/21 12:05 Calcium 8.3 mg/dL (8.5-10.5) L 07/14/21 12:05 Discharge Plan Discharge Patient Disposition: Home Clinical Impression: Acute breast pain, Breast erythema Condition: Stable Prescriptions: New acetaminophen 500 mg tablet 500 mg PO Q6H PRN (Reason: pain) 5 Days Qty: 20 0RF clindamycin HCl 300 mg capsule 300 mg PO TID 7 Days Qty: 21 0RF Florastor 250 mg capsule 250 mg PO BID PRN (Reason: abdominal discomfort) 7 Days Qty: 14 0RF No Action paliperidone [Invega] 1.5 mg tablet extended release 24hr 1.5 mg PO QAM Qty: 90 1RF Rx Instructions: Take one tablet every morning Aimovig Autoinjector 70 mg/mL auto-injector 140 mg SUBCUT .every 30 days 0RF benztropine 1 mg tablet 1 mg PO DAILY PRN (Reason: Extrapyramidal Effects/Symptoms) Qty: 90 2RF Rx Instructions: Take one tablet daily as needed for EPS Discharge Orders: Discharge ED (Routine); Ordered 07/14/21 Ordered By: Gagan Grullon Discharge Diet: Advance as tolerated Discharge Activity: Increase activity as tolerated Activity Restrictions/Additional Instructions: Follow-up with your doctor at [facility] for evaluation of the swelling. Come back to the emergency room have noticed any significant redness fever/chills, drainage, or any new extremity complaints. Please take your antibiotics as instructed. Watch out for signs of skin changes/redness, mouth redeness or swelling, nausea/vomiting, diarrhea, blood in the urine or any new or concering complaints. Coding Level of Care Code ED Clinical Trials Assistant for Mckenna Fwanshu Exam Comprehensive
[2021-07-14] MEDS: acetaminophen 500 mg Tablet PO (12:19)
[2021-07-14 12:26] LABS: Basophils # 0.1 10^3/uL (0.0-0.1); Basophils % 0.6 %; Eosinophils # 0.2 10^3/uL (0.0-0.8); Eosinophils % 2.2 %; Hematocrit 37.2 % (37.0-47.0); Hemoglobin 12.1 g/dL (11.5-15.3); Lymphocytes % 24.8 %; Mean Corpuscular HGB Conc 32.5 g/dL (30.0-36.0); Mean Corpuscular Hemoglobin 29.4 pg (28.0-34.0); Mean Corpuscular Volume 90.3 fl (81-99); Mean Platelet Volume 8.4 fL (7.4-10.4); Monocytes # 0.6 10^3/uL (0.2-0.9); Monocytes % 7.1 %; Neutrophils # 5.21 10^3/uL (1.8-7.7); Neutrophils % 65.1 %; Nucleated Red Blood Cells % 0 %; Platelet Count 268 10^3/cmm (130-400); Red Blood Count 4.12 10^6/uL (4.1-5.3); Red Cell Distribution Width 12.3 % (12.1-15.1)
[2021-07-14 12:38] LABS: Anion Gap 14.8 (5-19); Blood Urea Nitrogen 15 mg/dL (6-20); Calcium 8.3 mg/dL (8.5-10.5); Carbon Dioxide 25 mmol/L (22-29); Chloride 102 mmol/L (98-107); Glomerular Filtration Rate 90.9 mL/min (90-130); Glucose 102 mg/dL (65-115); Osmolality Calculated 287 mOsm/kg (285-295); Potassium 3.8 mmol/L (3.5-5.1); Sodium 138 mmol/L (136-145)
== END 2021-07-14 12:47 | disposition home or self-care (01) ==
PROVIDERS: Emergency Provider Emergency Medicine
DX: N64.4 Mastodynia (principal); L53.9 Erythematous condition, unspecified
CPT/HCPCS: 80048; 85025; 99283

== ENCOUNTER 2021-07-16 22:17 | Emergency (ER) | payer MEDICARE, MEDICAID, SELFPAY ==
[2021-07-16 22:26] VITALS: BP 132/86; PULSE 95; RESP 18; TEMP 36.8; O2SAT 100; BMI 34.3
--- NOTE | 2021-07-16 22:44 | USR_ITS ---
PROCEDURE INFORMATION: Exam: US Left Breast Limited Exam date and time: 07/16/2021 10:44 PM Age: 45 years old Clinical indication: Mass, lump, or swelling; Left; Breast pain; Additional info: Painful breast mass TECHNIQUE: Imaging protocol: Limited ultrasound of Left breast with image documentation, including axilla when performed. Exam focused on the search and evaluation for mass. COMPARISON: [place] [id number] 07/22/2020 11:57 AM FINDINGS: Breast: No loculated fluid collection is identified. Possible area of hypoechoic free fluid in the soft tissues. Somewhat lobulated nodular isoechoic density amongst the subcutaneous fat measuring 3.7 cm x 2.4 cm x 1.4 cm described as the 3 o'clock position. US/US breast LT limited* [id number] IMPRESSION: No drainable abscess seen. ASSESSMENT: Follow-up may be indicated with formal diagnostic breast workup which would also include mammography.
--- NOTE | 2021-07-16 22:50 | W.ED.GENADLT ---
HPI - General Adult General: Chief complaint: General Medical Stated complaint: Left Breast Pain Time Seen by Provider: 07/16/21 22:43 History of Present Illness: 45-year-old female comes in today with complaints of increasing breast pain and tenderness on the left breast. Patient was seen Wednesday was noted to have some mild erythema which has improved since starting clindamycin. Patient though has noted more swelling in the deep tissue and hardness. Review of Systems General: Reports: 10 or more systems reviewed and unremarkable except in HPI and below Skin/Breast: Reports: breast mass PFSH ED PFSH: Medical History Adjustment disorder with anxiety relationship with mother Bipolar disorder, in full remission, most recent episode manic Chronic constipation Hypothyroidism Psychiatric care Surgical History History of bilateral tubal ligation (07/18/19) Laparoscopic bilateral complete salpingectomy. Per[place]. Pang [place] [facility] [place], [place] History of wisdom tooth extraction Hx of appendectomy (05/08/18) Laparoscopic. Performed by Dr. Roy at [facility] in [place], [place] S/P cholecystectomy (01/08/17) Laparoscopy S/P dilation and curettage (~1999) Treatment of miscarriage. S/P excision of lipoma (10/13/12) Left axilla. Performed by Dr. Gillespie. Status post incision and drainage (10/28/12) Left axillary abscess. Performed by Dr. Ramirez in ER at [facility] in [place], [place] Family History Other CAD (coronary artery disease) Diabetes Heart disease Social History Smoking and tobacco status: never smoked Alcohol intake: former Lives independently: Yes Marital status: Single History of recent travel: No Female Reproductive History: Date of last menstrual period: 06/15/19 Physical Exam Const: COMMON NORMALS: alert HENMT: COMMON NORMALS: normocephalic HEAD & SCALP: normocephalic MOUTH: Normal oral and palatal mucosa present Neck/C-Spine: COMMON NORMALS: full ROM Lymph: LYMPHATIC: no lymphadenopathy noted Chest: BREAST/AXILLA PALPATION: Yes abnormal palpation of the breast (2 o'clock position at the nipple approximately 4 cm x 6 cm ovoid) NIPPLE/AREOLA: Yes nipple abnormal Nipple abnormal details: inversion (left nipple) Resp: COMMON NORMALS: normal respiratory effort Cardio: COMMON NORMALS: regular rate and regular rhythm RATE: regular rate RHYTHM: regular rhythm Extremity: COMMON NORMALS: normal to inspection Neuro: SENSORIUM/ORIENTATION: Yes alert Psych: COMMON NORMALS: cooperative Course ED course: 2300. After discussion with Dr. Merchant he is used bedside ultrasound to evaluate the mass and did not note any significant fluid collection for drainage. He agreed to plan to continue with formal ultrasound and probable follow-up with surgeon. Vital Signs: Vital signs: Vital Signs Temperature 98.2 F 07/16/21 22:26 Pulse Rate 95 07/16/21 22:26 Respiratory Rate 18 07/16/21 22:26 Blood Pressure 132/86 07/16/21 22:26 Pulse Oximetry 100 07/16/21 22:26 MDM - General Adult Medical Decision Making 45-year-old female comes in today with complaints of tenderness and a mass to the left breast. Patient was seen 2 days ago and started on clindamycin does report some decrease in redness to the breast after starting antibiotic but has noticed more increase tenderness to the mass. On exam I note a significant size mass to the 2 o'clock position of the upper outer quadrant of the breast is approximately 6 cm ovoid. Patient does have inversion of the nipple. Differential diagnosis includes carcinoma of the breast, mastitis, abscess. Ultrasound performed did not note any fluid collection suggestive of an abscess. Recommended follow-up with surgeon for biopsy and further treatment. Patient will be continued with clindamycin as prescribed since she has had improvement in the redness. Case management was requested to set patient up for the biopsy. Lab Data : 07/16/21 23:38 Laboratory Results WBC 9.2 10^3/uL (4.0-10.0) 07/16/21 23:38 RBC 4.13 10^6/uL (4.1-5.3) 07/16/21 23:38 Hgb 12.0 g/dL (11.5-15.3) 07/16/21 23:38 Hct 36.9 % (37.0-47.0) L 07/16/21 23:38 MCV 89.3 fl (81-99) 07/16/21 23:38 MCH 29.1 pg (28.0-34.0) 07/16/21 23:38 MCHC 32.5 g/dL (30.0-36.0) 07/16/21 23:38 RDW 12.2 % (12.1-15.1) 07/16/21 23:38 Plt Count 312 10^3/cmm (130-400) 07/16/21 23:38 MPV 8.4 fL (7.4-10.4) 07/16/21 23:38 Neut % (Auto) 63.5 % 07/16/21 23:38 Lymph % (Auto) 24.6 % 07/16/21 23:38 Lucas % (Auto) 8.1 % 07/16/21 23:38 Eos % (Auto) 3.3 % 07/16/21 23:38 Baso % (Auto) 0.4 % 07/16/21 23:38 Neut # (Auto) 5.81 10^3/uL (1.8-7.7) 07/16/21 23:38 Lymph # (Auto) 2.3 10^3/uL (0.8-4.8) 07/16/21 23:38 Lucas # (Auto) 0.7 10^3/uL (0.2-0.9) 07/16/21 23:38 Eos # (Auto) 0.3 10^3/uL (0.0-0.8) 07/16/21 23:38 Baso # (Auto) 0.0 10^3/uL (0.0-0.1) 07/16/21 23:38 Nucleated RBC % (auto) 0 % 07/16/21 23:38 Nucleated RBCs # 0.0 /100WBC 07/16/21 23:38 Discharge Plan Discharge Patient Disposition: Home Clinical Impression: Breast mass, right Qualifiers: Breast mass location: upper outer quadrant Qualified Code(s): N63.11 - Unspecified lump in the right breast, upper outer quadrant Condition: Stable Prescriptions: New hydrocodone-acetaminophen 5-325 mg tablet 1 tab PO Q8H PRN (Reason: pain (scale score 7-10)) Qty: 10 0RF No Action paliperidone [Invega] 1.5 mg tablet extended release 24hr 1.5 mg PO QAM Qty: 90 1RF Rx Instructions: Take one tablet every morning Aimovig Autoinjector 70 mg/mL auto-injector 140 mg SUBCUT .every 30 days 0RF benztropine 1 mg tablet 1 mg PO DAILY PRN (Reason: Extrapyramidal Effects/Symptoms) Qty: 90 2RF Rx Instructions: Take one tablet daily as needed for EPS acetaminophen 500 mg tablet 500 mg PO Q6H PRN (Reason: pain) 5 Days Qty: 20 0RF clindamycin HCl 300 mg capsule 300 mg PO TID 7 Days Qty: 21 0RF Florastor 250 mg capsule 250 mg PO BID PRN (Reason: abdominal discomfort) 7 Days Qty: 14 0RF Discharge Orders: Discharge ED (Routine); Ordered 07/17/21 Ordered By: Eliezer Leal Patient Instructions: Opioid Safety Activity Restrictions/Additional Instructions: Continue with antibiotic as prescribed. Drink plenty of water with antibiotic. Follow-up with surgeon for evaluation and treatment of breast mass. Return to ER for high fever greater than 100.4 or new concerns. Coding Level of Care Code ED Parliamentary Librarian for Mckenna Fwd Exam Comprehensive
[2021-07-16 23:01] VITALS: BP 113/79; PULSE 103; RESP 18; O2SAT 99
[2021-07-16] MEDS: ibuprofen 800 mg tablet PO (23:28)
[2021-07-16 23:31] VITALS: PULSE 103; RESP 18; O2SAT 100
[2021-07-16 23:48] LABS: Basophils % 0.4 %; Eosinophils # 0.3 10^3/uL (0.0-0.8); Eosinophils % 3.3 %; Hematocrit 36.9 % (37.0-47.0); Lymphocytes # 2.3 10^3/uL (0.8-4.8); Lymphocytes % 24.6 %; Mean Corpuscular HGB Conc 32.5 g/dL (30.0-36.0); Mean Corpuscular Hemoglobin 29.1 pg (28.0-34.0); Mean Corpuscular Volume 89.3 fl (81-99); Mean Platelet Volume 8.4 fL (7.4-10.4); Monocytes # 0.7 10^3/uL (0.2-0.9); Monocytes % 8.1 %; Neutrophils # 5.81 10^3/uL (1.8-7.7); Neutrophils % 63.5 %; Nucleated Red Blood Cells % 0 %; Platelet Count 312 10^3/cmm (130-400); Red Blood Count 4.13 10^6/uL (4.1-5.3); Red Cell Distribution Width 12.2 % (12.1-15.1); White Blood Count 9.2 10^3/uL (4.0-10.0)
[2021-07-17] VITALS: BP 109/92; PULSE 104; RESP 18; O2SAT 98
[2021-07-17 00:31] VITALS: PULSE 88; RESP 18; O2SAT 99
[2021-07-17] MEDS: clindamycin 600 MG/50 ML PREMIX 100 MG IV (00:56)
[2021-07-17 01:01] VITALS: BP 112/66; PULSE 96; RESP 18; O2SAT 99
[2021-07-17 01:31] VITALS: BP 94/51; PULSE 88; RESP 18; O2SAT 97
[2021-07-17 03:02] VITALS: BP 95/55; PULSE 100; RESP 18; O2SAT 99
--- NOTE | 2021-07-22 12:53 | DCPLANNER ---
Addendum entered by Layla Bell 08/28/21 07:39: Patient had a follow up appointment scheduled for 08.15.21 with general surgery - this appointment was cancelled. Addendum entered by Layla Bell 07/28/21 08:39: Patient has a follow up appointment scheduled for Sunday, August 15, [address] at 8:[address] Roy. Patient request to have appointment in August. Clinic will contact patient with appointment information. Original Note: advertising project manager had message to schedule a follow up appointment for patient with general surgery. advertising project manager emailed patients information to both Aicha, and Carin, at [facility] General Surgery / ENT clinic. Patients information will be printed and reviewed. Clinic will call patient with appointment information.
== END 2021-07-17 03:02 | disposition home or self-care (01) ==
PROVIDERS: Emergency Provider Nurse Practitioner Family
DX: N63.11 Unspecified lump in the right breast, upper outer quadrant (principal)
CPT/HCPCS: 76642; 85025; 96365; 99284; J3490

== ENCOUNTER → 2021-10-20 15:29 | Outpatient (BNVA) | payer MEDICARE, MEDICAID, SELFPAY | PROVIDERS: Visit Provider Nurse Practitioner Psychiatric/Mental Health | DX: Z79.899 Other long term (current) drug therapy (principal); F43.22 Adjustment disorder with anxiety; F31.74 Bipolar disorder, in full remission, most recent episode manic | CPT/HCPCS: 99214 ==

== ENCOUNTER 2022-01-29 23:21 | Emergency (ER) | payer MEDICARE, MEDICAID, SELFPAY ==
[2022-01-29 23:26] VITALS: BP 148/92; PULSE 115; RESP 20; TEMP 36.5
--- NOTE | 2022-01-29 23:32 | ED_ITS ---
HPI - General Adult General: Chief complaint: Psychiatric Symptoms Stated complaint: OD Time Seen by Provider: 01/29/22 23:22 History of Present Illness: 46-year-old female presenting today with medical clearance. Patient noting she does not want to kill herself. She has no desire or intent to kill herself. She not do anything to harm her self before arrival. She notes that her boyfriend is lying about her. Saying that she overdosed on medications. When she had no medications to overdose on. She has no prior history of psychiatric admissions. No prior history of psychiatric suicide attempts. Review of Systems General: Reports: 10 or more systems reviewed and unremarkable except in HPI and below PFSH ED PFSH: Medical History Adjustment disorder with anxiety relationship with mother Bipolar disorder, in full remission, most recent episode manic Chronic constipation Hypothyroidism Psychiatric care Surgical History History of bilateral tubal ligation (07/18/19) Laparoscopic bilateral complete salpingectomy. Performed by Dr. Pang at [facility] in [place], [place] History of wisdom tooth extraction Hx of appendectomy (05/08/18) Laparoscopic. Performed by Dr. Roy at [facility] in [place], [place] S/P cholecystectomy (01/08/17) Laparoscopy S/P dilation and curettage (~1999) Treatment of miscarriage. S/P excision of lipoma (10/13/12) Left axilla. Performed by Dr. Gillespie. Status post incision and drainage (10/28/12) Left axillary abscess. Performed by Dr. Ramirez in ER at [facility] in [place], [place] Family History Other CAD (coronary artery disease) Diabetes Heart disease Social History Smoking and tobacco status: never smoked Alcohol intake: former Lives independently: Yes Marital status: Single History of recent travel: No Female Reproductive History: Date of last menstrual period: 06/15/19 Physical Exam Const: COMMON NORMALS: no acute distress, patient oriented x3 and alert GENERAL APPEARANCE: cooperative ORIENTATION/CONSCIOUSNESS: Yes awake, Yes oriented to person, Yes oriented to place and Yes oriented to time HENMT: COMMON NORMALS: normocephalic, atraumatic, external ears normal, Normal external nose present and moist oral mucous membranes HEAD & SCALP: normal to inspection, normocephalic and atraumatic NOSE: Normal external nose present GENERAL EAR: hearing grossly impaired EXTERNAL EAR: Yes external ears normal Eye: COMMON NORMALS: Equal, round and reactive pupils present, EOMs intact bilaterally, conjunctivae normal and no scleral icterus GENERAL EYE: appearance normal, both eyes and all related structures EYELID: eyelids normal CONJUNCTIVA: Yes conjunctivae normal SCLERA: sclerae normal PUPIL: Yes Equal, round and reactive pupils present Neck/C-Spine: COMMON NORMALS: full ROM, supple and no JVD GENERAL: Yes normal visual inspection Lymph: LYMPHATIC: no lymphadenopathy noted and no lymphedema noted Chest: COMMONS NORMALS: normal inspection of the chest Resp: COMMON NORMALS: normal respiratory effort, No retractions and No use of accessory muscles Cardio: COMMON NORMALS: no JVD, regular rate and regular rhythm RATE: regular rate RHYTHM: regular rhythm GI: COMMON NORMALS: Normal to inspection, nondistended, normoactive bowel sounds present : COMMON NORMALS: Yes no CVA tenderness BLADDER/KIDNEY EXAM: Yes no CVA tenderness Back/Pelvis: COMMON NORMALS: no CVA tenderness and thoracic and lumbar spine normal to inspection Extremity: COMMON NORMALS: normal to inspection, full ROM and capillary refill normal GENERAL: Yes normal exam except as noted Neuro: COMMON NORMALS: patient oriented x3, CN's II-XII intact bilaterally, moves all extremities, no focal motor deficits, no sensory deficits noted and gait normal SENSORIUM/ORIENTATION: Yes alert, Yes oriented to person, Yes oriented to place and Yes oriented to time Psych: COMMON NORMALS: mental status grossly normal, Normal thought process present, cooperative and normal affect THOUGHT PROCESS: Normal thought process present Skin: COMMON NORMALS: no rashes or lesions noted and no wounds GENERAL SKIN EXAM: no rashes or lesions noted [facility] - General Adult Medical Decision Making 46-year-old female presenting today with medical clearance. Patient adamantly denies suicide attempt, suicide ideation, or suicidality in the past. Patient is alert and oriented. Without evidence of physical trauma. Vitals are within normal limits. Based on [place] law no indication to hold patient against her well. Patient was given strict return precautions and recommended routine outpatient follow-up. Discharge Plan Discharge Patient Disposition: Home Clinical Impression: Medical clearance for psychiatric admission Condition: Stable Prescriptions: No Action paliperidone [Invega] 1.5 mg tablet extended release 24hr 1.5 mg PO QAM Qty: 90 2RF Rx Instructions: Take one tablet every morning Aimovig Autoinjector 70 mg/mL auto-injector 140 mg SUBCUT .every 30 days benztropine 1 mg tablet 1 mg PO DAILY PRN (Reason: Extrapyramidal Effects/Symptoms) Qty: 90 2RF Rx Instructions: Take one tablet daily as needed for EPS ondansetron 4 mg tablet,disintegrating 4 mg PO Q6H PRN (Reason: nausea and vomiting) Qty: 14 0RF Discharge Orders: Discharge ED (Routine); Ordered 01/29/22 Ordered By: Luis Eduardo Inman Patient Instructions: Suicide Prevention (ED) Coding Level of Care Code ED Nuclear Process Engineer for Mckenna Angelo
[2022-01-30 01:11] VITALS: BP 148/92; PULSE 115; RESP 20; TEMP 36.5
== END 2022-01-29 23:58 | disposition home or self-care (01) ==
PROVIDERS: Emergency Provider Emergency Medicine
DX: Z00.8 Encounter for other general examination (principal)
CPT/HCPCS: 99285

== ENCOUNTER 2022-02-03 12:06 | Inpatient (IN) | payer MEDICARE, MEDICAID, SELFPAY ==
--- NOTE | 2022-02-03 12:23 | ECG_ITS ---
[facility] Test Date: 2022-02-03 Pat Name: Aicha Vitale Department: Room: Gender: Female Ground Defence Officer: : 1975 Requested By: Gagan Grullon Order Number: [id number] Chasity MD: Izabel Bowie M.D. Measurements Intervals [facility] Rate: 76 P: 56 ID: [id number] QRS: 54 QRSD: 76 T: 35 QT: 379 QTc: 428 Interpretive Statements SINUS RHYTHM No previous ECG available for comparison Electronically Signed On 02-04-2022 6:05:10 CDT by Izabel Bowie M.D. [id number]
[2022-02-03 12:27] VITALS: BP 143/87; PULSE 103; RESP 18; TEMP 36.9; O2SAT 100
--- NOTE | 2022-02-03 12:29 | ED_ITS ---
Documented by User: Gagan Grullon MD 02/09/22 11:04 HPI - General Adult General: Chief complaint: Psychiatric Symptoms Stated complaint: 96 hour hold Time Seen by Provider: 02/03/22 12:17 History of Present Illness: HPI: [46]yo patient w/ hx of IV drug use pre senting to the emergency room for concerns of psychosis. Patient was found today in the store incoherent in reporting hearing voices and seeing things. Patient does not have appropriate judgment. His officer was called and patient was brought in for concern of a psychosis and hallucination. On arrival, the patient is AAOx3 and cooperative with my evaluation. No focal complaints of chest pain, shortness of breath, palpitations, N/V, focal GI/ complaints. Currently denies HI. Onset: acute on chronic Duration: ongoing Location: home Severity: severe Associated symptoms: Deny chest pain, dyspnea, nausea, rash, palpitations or vomiting Review of Systems Const: Denies: fever(s) or chills Eyes: Denies: change in vision ENMT: Denies: mouth pain Card: Denies: chest pain or palpitations Resp: Denies: dyspnea or non-productive cough GI: Denies: abdominal pain, nausea, vomiting or diarrhea : Denies: dysuria Musc: Denies: extremity pain Skin/Breast: Denies: rash or new lesions Neuro: Denies: weakness in extremities Psych: Reports: visual hallucinations, auditory hallucinations and other (psychosis) Judah/Lymph: Denies: easy bruising PFSH ED PFSH: Medical History Adjustment disorder with anxiety relationship with mother Bipolar disorder, in full remission, most recent episode manic Chronic constipation Hypothyroidism Psychiatric care Surgical History History of bilateral tubal ligation (07/18/19) Laparoscopic bilateral complete salpingectomy. Performed by Dr. Pang at [facility] in [place], [place] History of wisdom tooth extraction Hx of appendectomy (05/08/18) Laparoscopic. Performed by Dr. Roy at [facility] in [place], [place] S/P cholecystectomy (01/08/17) Laparoscopy S/P dilation and curettage (~1999) Treatment of miscarriage. S/P excision of lipoma (10/13/12) Left axilla. Performed by Dr. Gillespie. Status post incision and drainage (10/28/12) Left axillary abscess. Performed by Dr. Ramirez in ER at [facility] in [place], [place] Family History Other CAD (coronary artery disease) Diabetes Heart disease Social History Smoking and tobacco status: never smoked Alcohol intake: former Lives independently: Yes Marital status: Single History of recent travel: No Physical Exam Const: COMMON NORMALS: alert HENMT: COMMON NORMALS: atraumatic HEAD & SCALP: atraumatic MOUTH: moist mucous membranes not abnormal Eye: COMMON NORMALS: EOMs intact bilaterally and conjunctivae normal CONJUNCTIVA: Yes conjunctivae normal Neck/C-Spine: COMMON NORMALS: full ROM and supple Resp: COMMON NORMALS: normal respiratory effort and clear to auscultation bilaterally AUSCULTATION: clear to auscultation bilaterally Cardio: COMMON NORMALS: regular rate RATE: regular rate GI: COMMON NORMALS: Soft to palpation and non-tender PALPATION: Yes Soft to palpation Extremity: COMMON NORMALS: full ROM Neuro: SENSORIUM/ORIENTATION: Yes alert MOTOR EXAM: No Abnormal motor strength present and Other motor observations present (no focal motor deficits) Psych: COMMON NORMALS: speech normal SPEECH: Yes normal speech MOOD & AFFECT: Yes irritable and Yes fearful Course Vital Signs: Vital signs: Vital Signs Temperature 98.5 F 02/03/22 12:27 Pulse Rate 104 H 02/04/22 13:36 Respiratory Rate 16 02/04/22 13:36 Blood Pressure 104/63 02/04/22 13:36 Pulse Oximetry 100 02/04/22 13:36 Oxygen Delivery Me thod 02/04/22 08:56 MDM - General Adult Medical Decision Making [46]yo patient w/ no known PMH presenting for psychosis, hallucinations and inability to take care of self. HDS, exam within normal limit Thoughts are linear. No SI/HI. Clinically the patient displays no overt toxidrome; they are well appearing, with low suspicion for toxic ingestion given history and exam. Symptoms unlikely 2/2 anemia, hypothyroidism, infection, or ICH. Workup: CBC, CMP, Lipase, salicylate/tylenol, TSH/free T4, EKG, covid antigen ethanol, UDS Lab findings: wnl [1:30pm] On reassessment, labs and workup wnl. Patient is hemodynamically stable with no acute medical complaints. Case discussed with psychiatric provider Dr. Chauhan at [facility] psych inpatient with recommendation for admission at psych facility. However when the patient's family reports in the Neuropsych Unit. Patient will be transferred for concerns of conflict of interest. Disposition: Xfer to outside psych facility. Case signed out to Dr. Merchant at [facility]. 02/04/2022 12:46 PM. Care assumed at change of shift. Patient agitated we have been able to get her placed here at the [facility]. There was some conflict of a family member working there with a family member is not scheduled to work for quite some time. Dr. Alicea is agreed to accept the patient in the [facility]. While we are waiting for the room to become available patient became agitated and made threatening remarks to the sitter. Patient given IM Geodon and Ativan. Chart reviewed and I discussed with the patient prior to the medicine being given. At this point to prevent any behavioral outbursts or physical confrontations I think the best interest to medicate her anxiety before her behavior precipitates a crisis for 1407 director of the [facility] is not telling us that patient not be able to be admitted here we have made arrangements for transfer to an outside facility. Transportation via ambulance. Lab Data : 02/03/22 14:20 02/03/22 14:20 Laboratory Results WBC 4.9 10^3/uL (4.0-10.0) 02/03/22 14:20 RBC 4.52 10^6/uL (4.1-5.3) 02/03/22 14:20 Hgb 13.0 g/dL (11.5-15.3) 02/03/22 14:20 Hct 40.8 % (37.0-47.0) 02/03/22 14:20 MCV 90.3 fl (81-99) 02/03/22 14:20 MCH 28.8 pg (28.0-34.0) 02/03/22 14:20 MCHC 31.9 g/dL (30.0-36.0) 02/03/22 14:20 RDW 12.6 % (12.1-15.1) 02/03/22 14:20 Plt Count 300 10^3/cmm (130-400) 02/03/22 14:20 MPV 9.9 fL (7.4-10.4) 02/03/22 14:20 Neut % (Auto) 48.2 % 02/03/22 14:20 Lymph % (Auto) 41.6 % 02/03/22 14:20 Anson % (Auto) 7.4 % 02/03/22 14:20 Eos % (Auto) 1.6 % 02/03/22 14:20 Baso % (Auto) 1.0 % 02/03/22 14:20 Neut # (Auto) 2.33 10^3/uL (1.8-7.7) 02/03/22 14:20 Lymph # (Auto) 2.0 10^3/uL (0.8-4.8) 02/03/22 14:20 Anson # (Auto) 0.4 10^3/uL (0.2-0.9) 02/03/22 14:20 Eos # (Auto) 0.1 10^3/uL (0.0-0.8) 02/03/22 14:20 Baso # (Auto) 0.1 10^3/uL (0.0-0.1) 02/03/22 14:20 Nucleated RBC % (auto) 0 % 02/03/22 14:20 Nucleated RBCs # 0.0 /100WBC 02/03/22 14:20 Sodium 134 mmol/L (136-145) L 02/03/22 14:20 Potassium 3.6 mmol/L (3.5-5.1) 02/03/22 14:20 Chloride 98 mmol/L (98-107) 02/03/22 14:20 Carbon Dioxide 23 mmol/L (22-29) 02/03/22 14:20 Anion Gap 16.6 (5-19) 02/03/22 14:20 BUN 12 mg/dL (6-20) 02/03/22 14:20 Creatinine 0.8 mg/dL (0.5-0.9) 02/03/22 14:20 GFR Calculation 77.6 mL/min (90-130) L 02/03/22 14:20 Glucose 106 mg/dL (65-115) 02/03/22 14:20 Calculated Osmolality 278 mOsm/kg (285-295) L 02/03/22 14:20 Calcium 9.6 mg/dL (8.5-10.5) 02/03/22 14:20 Total Bilirubin 0.3 mg/dL (0.15-1.2) 02/03/22 14:20 AST 46 U/L (0-32) H 02/03/22 14:20 ALT 51 U/L (0-33) H 02/03/22 14:20 Alkaline Phosphatase 49 U/L (35-105) 02/03/22 14:20 Total Protein 8.0 g/dL (6.6-8.7) 02/03/22 14:20 Albumin 4.4 g/dL (3.5-5.2) 02/03/22 14:20 Globulin 3.6 g/dL (1.3-4.6) 02/03/22 14:20 Lipase 38 U/L (13-60) 02/03/22 14:20 TSH 3.81 uIU/mL (0.27-4.20) 02/03/22 14:20 Free T4 1.21 ng/dL (0.82-1.77) 02/03/22 14:20 Urine HCG, Qual Negative (Negative) 02/03/22 18:55 Salicylates < 0.3 mg/dL (3-10) L 02/03/22 14:20 Urine Opiates Screen Negative ng/mL (Negative) 02/03/22 18:55 Acetaminophen < 5.0 ug/mL (10-30) L 02/03/22 14:20 Ur Barbiturates Screen Negative ng/mL (Negative) 02/03/22 18:55 Ur Phencyclidine Scrn Negative ng/mL (Negative) 02/03/22 18:55 Ur Amphetamines Screen Negative ng/mL (Negative) 02/03/22 18:55 U Benzodiazepines Scrn Negative ng/mL (Negative) 02/03/22 18:55 Urine Cocaine Screen Negative ng/mL (Negative) 02/03/22 18:55 U Marijuana (THC) Screen Negative ng/mL (Negative) 02/03/22 18:55 Ethyl Alcohol < 10 mg/dL (0-10) 02/03/22 14:20 Ethyl Alcohol Cancelled 02/03/22 14:20 SARS-CoV-2 Ag (Rapid) Negative (Negative) 02/03/22 19:00 Discharge Plan Discharge Patient Disposition: Transfer to ED Admit Provider: Brain Chauhan Clinical Impression: Psychosis, Hallucinations Condition: Stable Coding Level of Care Code ED Proof Coin Collector for Chg Fwd Exam Comprehensive Documented by User: Toi Barrow DO 02/04/22 14:08 HPI - General Adult General: Chief complaint: Psychiatric Symptoms Stated complaint: 96 hour hold Time Seen by Provider: 02/03/22 12:17 [facility] ED PFSH: Medical History Adjustment disorder with anxiety relationship with mother Bipolar disorder, in full remission, most recent episode manic Chronic constipation Hypothyroidism Psychiatric care Surgical History History of bilateral tubal ligation (07/18/19) Laparoscopic bilateral complete salpingectomy. Performed by Dr. Pang at [facility] in [place], [place] History of wisdom tooth extraction Hx of appendectomy (05/08/18) Laparoscopic. Performed by Dr. Roy at [facility] in [place], [place] S/P cholecystectomy (01/08/17) Laparoscopy S/P dilation and curettage (~1999) Treatment of miscarriage. S/P excision of lipoma (10/13/12) Left axilla. Performed by Dr. Gillespie. Status post incision and drainage (10/28/12) Left axillary abscess. Performed by Dr. Ramirez in ER at [facility] in [place], [place] Family History Other CAD (coronary artery disease) Diabetes Heart disease Social History Smoking and tobacco status: never smoked Alcohol intake: former Lives independently: Yes Marital status: Single History of recent travel: No Course Vital Signs: Vital signs: Vital Signs Temperature 98.5 F 02/03/22 12:27 Pulse Rate 104 H 02/04/22 13:36 Respiratory Rate 16 02/04/22 13:36 Blood Pressure 104/63 02/04/22 13:36 Pulse Oximetry 100 02/04/22 13:36 Oxygen Delivery Me thod 02/04/22 08:56 MDM - General Adult Medical Decision Making [46]yo patient w/ no known PMH presenting for psychosis, hallucinations and inability to take care of self. HDS, exam within normal limit Thoughts are linear. No SI/HI. Clinically the patient displays no overt toxidrome; they are well appearing, with low suspicion for toxic ingestion given history and exam. Symptoms unlikely 2/2 anemia, hypothyroidism, infection, or ICH. Workup: CBC, CMP, Lipase, salicylate/tylenol, TSH/free T4, EKG, covid antigen ethanol, UDS Lab findings: wnl [1:30pm] On reassessment, labs and workup wnl. Patient is hemodynamically stable with no acute medical complaints. Case discussed with psychiatric provider Dr. Chauhan at [facility] psych inpatient with recommendation for admission at psych facility. However when the patient's family reports in the Neuropsych Unit. Patient will be transferred for concerns of conflict of interest. Disposition: Xfer to outside psych facility. 02/04/2022 12:46 PM. Care assumed at change of shift. Patient agitated we have been able to get her placed here at the [facility]. There was some conflict of a family member working there with a family member is not scheduled to work for quite some time. Dr. Alicea is agreed to accept the patient in the [facility]. While we are waiting for the room to become available patient became agitated and made threatening remarks to the sitter. Patient given IM Geodon and Ativan. Chart reviewed and I discussed with the patient prior to the medicine being given. At this point to prevent any behavioral outbursts or physical confrontations I think the best interest to medicate her anxiety before her behavior precipitates a crisis for 1407 director of the [facility] is not telling us that patient not be able to be admitted here we have made arrangements for transfer to an outside facility. Transportation via ambulance. Medical Records I reviewed the patient's medical records. Lab Data I reviewed the patient's lab results. : 02/03/22 14:20 02/03/22 14:20 Laboratory Results WBC 4.9 10^3/uL (4.0-10.0) 02/03/22 14:20 RBC 4.52 10^6/uL (4.1-5.3) 02/03/22 14:20 Hgb 13.0 g/dL (11.5-15.3) 02/03/22 14:20 Hct 40.8 % (37.0-47.0) 02/03/22 14:20 MCV 90.3 fl (81-99) 02/03/22 14:20 MCH 28.8 pg (28.0-34.0) 02/03/22 14:20 MCHC 31.9 g/dL (30.0-36.0) 02/03/22 14:20 RDW 12.6 % (12.1-15.1) 02/03/22 14:20 Plt Count 300 10^3/cmm (130-400) 02/03/22 14:20 MPV 9.9 fL (7.4-10.4) 02/03/22 14:20 Neut % (Auto) 48.2 % 02/03/22 14:20 Lymph % (Auto) 41.6 % 02/03/22 14:20 Anson % (Auto) 7.4 % 02/03/22 14:20 Eos % (Auto) 1.6 % 02/03/22 14:20 Baso % (Auto) 1.0 % 02/03/22 14:20 Neut # (Auto) 2.33 10^3/uL (1.8-7.7) 02/03/22 14:20 Lymph # (Auto) 2.0 10^3/uL (0.8-4.8) 02/03/22 14:20 Anson # (Auto) 0.4 10^3/uL (0.2-0.9) 02/03/22 14:20 Eos # (Auto) 0.1 10^3/uL (0.0-0.8) 02/03/22 14:20 Baso # (Auto) 0.1 10^3/uL (0.0-0.1) 02/03/22 14:20 Nucleated RBC % (auto) 0 % 02/03/22 14:20 Nucleated RBCs # 0.0 /100WBC 02/03/22 14:20 Sodium 134 mmol/L (136-145) L 02/03/22 14:20 Potassium 3.6 mmol/L (3.5-5.1) 02/03/22 14:20 Chloride 98 mmol/L (98-107) 02/03/22 14:20 Carbon Dioxide 23 mmol/L (22-29) 02/03/22 14:20 Anion Gap 16.6 (5-19) 02/03/22 14:20 BUN 12 mg/dL (6-20) 02/03/22 14:20 Creatinine 0.8 mg/dL (0.5-0.9) 02/03/22 14:20 GFR Calculation 77.6 mL/min (90-130) L 02/03/22 14:20 Glucose 106 mg/dL (65-115) 02/03/22 14:20 Calculated Osmolality 278 mOsm/kg (285-295) L 02/03/22 14:20 Calcium 9.6 mg/dL (8.5-10.5) 02/03/22 14:20 Total Bilirubin 0.3 mg/dL (0.15-1.2) 02/03/22 14:20 AST 46 U/L (0-32) H 02/03/22 14:20 ALT 51 U/L (0-33) H 02/03/22 14:20 Alkaline Phosphatase 49 U/L (35-105) 02/03/22 14:20 Total Protein 8.0 g/dL (6.6-8.7) 02/03/22 14:20 Albumin 4.4 g/dL (3.5-5.2) 02/03/22 14:20 Globulin 3.6 g/dL (1.3-4.6) 02/03/22 14:20 Lipase 38 U/L (13-60) 02/03/22 14:20 TSH 3.81 uIU/mL (0.27-4.20) 02/03/22 14:20 Free T4 1.21 ng/dL (0.82-1.77) 02/03/22 14:20 Urine HCG, Qual Negative (Negative) 02/03/22 18:55 Salicylates < 0.3 mg/dL (3-10) L 02/03/22 14:20 Urine Opiates Screen Negative ng/mL (Negative) 02/03/22 18:55 Acetaminophen < 5.0 ug/mL (10-30) L 02/03/22 14:20 Ur Barbiturates Screen Negative ng/mL (Negative) 02/03/22 18:55 Ur Phencyclidine Scrn Negative ng/mL (Negative) 02/03/22 18:55 Ur Amphetamines Screen Negative ng/mL (Negative) 02/03/22 18:55 U Benzodiazepines Scrn Negative ng/mL (Negative) 02/03/22 18:55 Urine Cocaine Screen Negative ng/mL (Negative) 02/03/22 18:55 U Marijuana (THC) Screen Negative ng/mL (Negative) 02/03/22 18:55 Ethyl Alcohol < 10 mg/dL (0-10) 02/03/22 14:20 Ethyl Alcohol Cancelled 02/03/22 14:20 SARS-CoV-2 Ag (Rapid) Negative (Negative) 02/03/22 19:00 Discharge Plan Discharge Patient Disposition: Transfer to ED Admit Provider: Brain Chauhan Clinical Impression: Psychosis, Hallucinations Condition: Stable Coding Level of Care Code ED Proof Coin Collector for Mckenna Fwd Exam Comprehensive
[2022-02-03 14:25] LABS: Basophils # 0.1 10^3/uL (0.0-0.1); Eosinophils # 0.1 10^3/uL (0.0-0.8); Eosinophils % 1.6 %; Hematocrit 40.8 % (37.0-47.0); Lymphocytes % 41.6 %; Mean Corpuscular HGB Conc 31.9 g/dL (30.0-36.0); Mean Corpuscular Hemoglobin 28.8 pg (28.0-34.0); Mean Corpuscular Volume 90.3 fl (81-99); Mean Platelet Volume 9.9 fL (7.4-10.4); Monocytes # 0.4 10^3/uL (0.2-0.9); Monocytes % 7.4 %; Neutrophils # 2.33 10^3/uL (1.8-7.7); Neutrophils % 48.2 %; Nucleated Red Blood Cells % 0 %; Platelet Count 300 10^3/cmm (130-400); Red Blood Count 4.52 10^6/uL (4.1-5.3); Red Cell Distribution Width 12.6 % (12.1-15.1); White Blood Count 4.9 10^3/uL (4.0-10.0)
[2022-02-03 14:56] LABS: Alanine Aminotransferase 51 U/L (0-33); Albumin Level 4.4 g/dL (3.5-5.2); Alkaline Phosphatase 49 U/L (35-105); Aspartate Amino Transferase 46 U/L (0-32); Blood Urea Nitrogen 12 mg/dL (6-20); Calcium 9.6 mg/dL (8.5-10.5); Carbon Dioxide 23 mmol/L (22-29); Chloride 98 mmol/L (98-107); Free T4 Free Thyroxine 1.21 ng/dL (0.82-1.77); Globulin 3.6 g/dL (1.3-4.6); Glomerular Filtration Rate 77.6 mL/min (90-130); Glucose 106 mg/dL (65-115); Lipase 38 U/L (13-60); Osmolality Calculated 278 mOsm/kg (285-295); Sodium 134 mmol/L (136-145); Thyroid Stimulating Hormone 3.81 uIU/mL (0.27-4.20); Total Bilirubin 0.3 mg/dL (0.15-1.2)
[2022-02-03 14:57] LABS: Acetaminophen < 5.0 ug/mL (10-30); Alcohol Level < 10 mg/dL (0-10); Salicylate < 0.3 mg/dL (3-10)
[2022-02-03 14:58] LABS: Anion Gap 16.6 (5-19); Potassium 3.6 mmol/L (3.5-5.1)
--- NOTE | 2022-02-03 15:54 | PC.NURSE ---
Pt is refusing all medications at this time, I talked to and he said to hold off on the meds for now since she is not being aggressive
--- NOTE | 2022-02-03 15:54 | PC.NURSE ---
Patient refused COVID swab. Patient states she wants nothing to do with covid stuff.
[2022-02-03 19:26] LABS: SARS Covid-2 Antigen Negative (Negative)
[2022-02-03 19:33] LABS: Amphetamines Screen Urine Negative (Negative); Barbiturates Screen Urine Negative (Negative); Benzodiazepines Screen Urine Negative (Negative); Cocaine Screen Urine Negative (Negative); Opiate Screen Urine Negative (Negative); PCP Screen Urine Negative (Negative); THC Screen Urine Negative (Negative)
--- NOTE | 2022-02-04 07:13 | PC.NURSE ---
pt asleep, lights dimmed. remains in line of sight of sitter
[2022-02-04 08:56] VITALS: BP 102/70; PULSE 88; O2SAT 100
--- NOTE | 2022-02-04 08:58 | PC.NURSE ---
pt sitting in doorway eating her breakfast, calm and cooperative
--- NOTE | 2022-02-04 09:14 | PC.NURSE ---
pt finished breakfast, offered pt additional food. Pt requesting applesauce, milk, and apple juice, brought to pt. Inquired about pt home medication list, pt states she does not take any medications.
--- NOTE | 2022-02-04 09:50 | PC.NURSE ---
spoke with Carla from [facility]. Requesting a UA from pt and an accurate weight and then they can accept the pt.
[2022-02-04 11:55] LABS: Bilirubin Urine Negative (Negative); Blood Urine Trace-intact (Negative); Glucose Urine UA Negative (Normal); Ketones Urine Negative (Negative); Leukocyte Esterase Urine Negative; Nitrate Urine Negative; Protein Urine Negative (Negative); Specific Gravity, Urine <= 1.005 (1.005-1.030); Urine Color Yellow (Yellow); Urobilinogen Urine 0.2 mg/dL (Negative)
[2022-02-04 12:10] LABS: Add Urine Microscopic? YES
[2022-02-04 12:15] LABS: RBC Urine 0-4 /hpf (0-2); WBC Urine 0-4 /hpf (0-5)
[2022-02-04 12:16] LABS: Add Urine Culture? No; Bacteria Urine 1+ /hpf
[2022-02-04] MEDS: ziprasidone 20 mg/mL SDV 10 MG IM (12:44)
[2022-02-04] MEDS: midazolam 1 mg/mL INJ 2 mL 2 MG IM (12:44)
--- NOTE | 2022-02-04 12:55 | PC.NURSE ---
was notified by staff that pt was becoming increasingly agitated and that pt was out of room, not following direction or request to return to room. pt was noted to tell the sitter that staff better do something or we would have to call security. medications were ordered by Dr. Barrow. Staff entered pt room and attempted redirection and deescalation again, pt becoming increasingly agitated and yelling at staff. Educated pt on medications ordered, pt states she wants the ordering physician himself to administer the medications. educated pt that the nurses would be administering medications. security and additional staff to room if needed. medications were administered by RNs and pt changed out of personal clothing and into paper scrubs. no physical aggression towards staff noted, however, pt was uncooperative and did not assist staff with changing. Pt placed into paper scrubs and covered with a sheet. offered a blanket, pt stared at nurse without answering. blanket placed on bed. pt remains in line of site of sitter.
[2022-02-04 13:36] VITALS: BP 104/63; PULSE 104; RESP 16; O2SAT 100
--- NOTE | 2022-02-04 13:49 | PC.NURSE ---
pt resting in bed, placed pt on VS monitor. VS currently WNL.
--- NOTE | 2022-02-04 14:12 | PC.NURSE ---
report called to YUNIEL Fountain at [facility]
== END 2022-02-04 17:00 | DRG 885 ==
LOC: ER 23:01 → ER IP 02-04 06:02
PROVIDERS: Emergency Medicine; Admitting Provider Psychiatry & Neurology Psychiatry; Emergency Provider Family Medicine; Visit Provider Psychiatry & Neurology Psychiatry
DX: F23 Brief psychotic disorder (principal); F43.22 Adjustment disorder with anxiety; F31.74 Bipolar disorder, in full remission, most recent episode manic; K59.09 Other constipation; E03.9 Hypothyroidism, unspecified; R45.1 Restlessness and agitation
CPT/HCPCS: 80053; 80306; 80307; 81001; 81025; 83690; 84439; 84443; 85025; 87426; 93005; 96372; 99285; J2250; J3486

== ENCOUNTER 2022-02-24 19:30 | Inpatient (IN) | payer MEDICARE, MEDICAID, SELFPAY ==
[2022-02-24 19:49] VITALS: BMI 25.4
[2022-02-24 22:00] VITALS: BP 142/87; PULSE 84; RESP 18; TEMP 36.6; O2SAT 100
[2022-02-25 05:51] VITALS: BP 100/65; PULSE 86; RESP 17; TEMP 36.6; O2SAT 99
[2022-02-25 14:00] VITALS: BP 100/67; PULSE 86; RESP 18; TEMP 36.6; O2SAT 100
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
[2022-02-25 20:42] VITALS: BP 105/64; PULSE 110; RESP 18; TEMP 36.6; O2SAT 99
[2022-02-26] MEDS: ibuprofen 600 mg Tablet PO (06:34)
--- NOTE | 2022-02-26 13:09 | W.PM.NPUPNS ---
Subjective NPU Subjective: Patient presents today continuing to have limited filter. She went on a long conversations without break talking about everything from other patients to racism and whether or not she is more of a NIGGER when this casualty underwriter. With limited insight into whether or not this might be an issue for me. Seems to struggle overall with impulsivity. Mental Status Exam MSE Comments: This is an overweight white woman in hospital scrubs with adequate grooming and eye contact. No abnormal movements. Cooperative with exam in mild distress. Speech was normal rate and volume. Mood described as pretty good, affect is elevated. Thought process, organized. Thought content: patient denies suicidal or homicidal ideation, reports paranoid and grandiose delusions noted and denies any auditory or visual hallucinations. Attention and concentration are intact and memory appeared reliable but none were formally tested. She is alert and oriented times three. Insight and judgment are limited. Impulse control is limited. Vitals/I&O/Wt Last Vital Signs Temp 97.9 F 02/25/22 20:42 Pulse 110 H 02/25/22 20:42 Resp 18 02/25/22 20:42 BP 105/64 02/25/22 20:42 Pulse Ox 99 02/25/22 20:42 O2 Del Method 02/25/22 05:51 Weight last 48 hrs Weight 58.967 kg A&P Assessment and plan (1) Psychosis: (2) Hallucinations: (3) Breast mass, right: Qualifiers: Breast mass location: upper outer quadrant Qualified Code(s): N63.11 - Unspecified lump in the right breast, upper outer quadrant (4) Chronic constipation: (5) Traumatic brain injury: (6) Chronic migraine without aura, intractable, with status migrainosus: (7) Bipolar disorder, in full remission, most recent episode manic: Plan This is a 46 year old white woman with a history of trauma, post traumatic stress disorder and genetic loading for mental health, addiction and lethality issues who presents on a 96 hour hold reporting her mother has been the reason for her hospitalizations over the years and denying any issues. 1. Continue current medications 2. Encourage individual, group and milieu therapy 3. Continue q-15 minute check for safety 4. Recommend sober living treatment at the highest level of care to which the patient is willing to commit. 5. Obtain collateral information on some of her assertions to identify whether this is he said she said or clear mental illness. Review records. Involuntary Hold Information 96 Hour Hold: 96 Hour Involuntary Admission: Yes 96 Hour Hold Ending Date: 03/02/22 96 Hour Hold Ending Time: 18:45 Attestations NPU Medical Necessity Statement*: Inpatient hospitalization is medically necessary and the clinically appropriate intervention at this time. We will monitor medications and make changes as indicated. Likely length of stay is three to five days. Coding Level of Care Code Acute Manager Architecture for g Fwd Diagnoses Psychosis F29 Hallucinations R44.3 Breast mass, right N63.11 Breast mass location: upper outer quadrant Chronic constipation K59.09 Traumatic brain injury S06.9X9A Chronic migraine without aura, intractable, with status migrainosus G43.711 Bipolar disorder, in full remission, most recent episode manic F31.74
[2022-02-26 14:00] VITALS: BP 119/73; PULSE 76; RESP 18; TEMP 36.8; O2SAT 91
[2022-02-26 22:00] VITALS: RESP 18
--- NOTE | 2022-02-27 00:33 | PC.NURSE ---
pt stated having pain in lower back and bilateral feet pt was asked by Gilberto Redmond if she would like ibuprofen for pain pt stated that would be fine, but then refused medication stating it did not work before so there was no use to take it. pt was wanting to know if there was anything stronger that wasnt over the counter. I explained to patient at this time there is not an order for narcotics for pain. pt stated ok she will talk with the doctor in the morning.
[2022-02-27 06:00] VITALS: RESP 18
[2022-02-27 14:00] VITALS: BP 117/78; PULSE 74; RESP 20; TEMP 36.6; O2SAT 100
--- NOTE | 2022-02-27 17:06 | P.NPUPN_ITS ---
Subjective NPU Subjective: Patient presents today reporting that she is doing better. However she is upset because of things were taken out of the room. Staff reported supporting that behavior with positive things in her room papers, books, snacks etc. she did not like the conversation she was having with me so she went to speak to the security systems administrator. Mental Status Exam MSE Comments: This is an overweight white woman in hospital scrubs with adequate grooming and eye contact. No abnormal movements. Cooperative with exam in mild distress. Speech was normal rate and volume. Mood described as not happy, affect is irritable. Thought process, organized. Thought content: patient denies suicidal or homicidal ideation, endorses paranoia and grandiose delusions noted and denies any auditory or visual hallucinations. Attention and concentration are intact and memory appeared intermittently reliable but none were formally tested. She is alert and oriented times three. Insight and judgment are limited. Impulse control is limited. Vitals/I&O/Wt Last Vital Signs Temp 97.9 F 02/27/22 14:00 Pulse 74 02/27/22 14:00 Resp 20 H 02/27/22 14:00 BP 117/78 02/27/22 14:00 Pulse Ox 100 02/27/22 14:00 O2 Del Method 02/27/22 14:00 A&P Assessment and plan (1) Psychosis: (2) Hallucinations: (3) Breast mass, right: Qualifiers: Breast mass location: upper outer quadrant Qualified Code(s): N63.11 - Unspecified lump in the right breast, upper outer quadrant (4) Chronic constipation: (5) Traumatic brain injury: (6) Chronic migraine without aura, intractable, with status migrainosus: (7) Bipolar disorder, in full remission, most recent episode manic: (8) Bipolar disorder, curr episode mixed, severe, w/o psychotic features: Plan This is a 46 year old white woman with a history of trauma, post traumatic stress disorder and genetic loading for mental health, addiction and lethality issues who presents on a 96 hour hold reporting her mother has been the reason for her hospitalizations over the years and denying any issues. 1. Continue current medications. We will offer her Invega or Abilify to intr oduce a mood stabilizer that can be switched to a long-acting injectable. 2. Encourage individual, group and milieu therapy 3. Continue q-15 minute check for safety 4. Recommend sober living treatment at the highest level of care to which the patient is willing to commit. Involuntary Hold Information 96 Hour Hold: 96 Hour Involuntary Admission: Yes 96 Hour Hold Ending Date: 03/02/22 96 Hour Hold Ending Time: 18:45 Attestations NPU Medical Necessity Statement*: Inpatient hospitalization is medically necessary and the clinically appropriate intervention at this time. We will monitor medications and make changes as indicated. Likely length of stay is 4-6 days. Coding Level of Care Code Acute Coordinator Skill Training Program for Chg Fwd Diagnoses Psychosis F29 Hallucinations R44.3 Breast mass, right N63.11 Breast mass location: upper outer quadrant Chronic constipation K59.09 Traumatic brain injury S06.9X9A Chronic migraine without aura, intractable, with status migrainosus G43.711 Bipolar disorder, in full remission, most recent episode manic F31.74 Bipolar disorder, curr episode mixed, severe, w/o psychotic features F31.63
[2022-02-27 19:43] VITALS: BP 111/76; PULSE 86; RESP 16; O2SAT 100
--- NOTE | 2022-02-28 02:51 | PC.NURSE ---
Patient has been up for past 45 minutes. Mood is irritable. Patient noted to have pressured speech. Complaining about day shift throwing her personal papers away. Attempted to speak with patient about the situation but patient refused to listen and continued to talk about various subjects having nothing to do with the original topic. Encouraged patient to attempt to go get rest but she stated I already slept enough. I don't need much sleep. Patient is currently reading a magazine while standing up in dayroom.
[2022-02-28 06:00] VITALS: BP 115/76; PULSE 107; RESP 18; O2SAT 100
--- NOTE | 2022-02-28 08:09 | P.NPUPN_ITS ---
Subjective NPU Subjective: Patient presented today growing increasingly irritable. We discussed some of her behaviors including some very grandiose, paranoid and irritable encounters. 1 involving her believing that she is the main characters in the books she is reading. Additionally reports of her only sleeping 30 mi nutes last night and still being quite active and agitated. She initially acknowledged that the things I was saying were true, but then she became quite resistant to the idea of medications basically saying she had been on every one of them but being unwilling to discuss why they did not work. She endorsed being on Zyprexa, Geodon, Abilify, Invega, Risperdal, lithium, Depakote, Haldol decided did not work. We discussed our desire to have one of her medications be a long-acting injectable at discharge. She reports most recently being on Vraylar and that she was supposed to be set up on Latuda and suggested Invega only to take these. I agreed I would attempt to get the regular but ultimately will be for something dependable from Zyprexa Relprevv, Abilify Maintena, Invega Sustenna, Perseris likely needed to create a real possibility for stability. Mental Status Exam MSE Comments: This is an overweight white woman in hospital scrubs with adequate grooming and eye contact. No abnormal movements except for psychomotor agitation. Cooperative with exam in mild to moderate distress. Speech was normal rate and volume. Mood described as not happy, affect is frustrated and irritable. Thought process, organized. Thought content: patient denies suicidal or homicidal ideation, endorses paranoia and grandiose delusions noted and denies any auditory or visual hallucinations. Attention and concentration are intact and memory appeared intermittently reliable but none were formally tested. She is alert and oriented times three. Insight and judgment are limited. Impulse control is impaired. Vitals/I&O/Wt Last Vital Signs Temp 97.9 F 02/27/22 14:00 Pulse 107 H 02/28/22 06:00 Resp 18 02/28/22 06:00 BP 115/76 02/28/22 06:00 Pulse Ox 100 02/28/22 06:00 O2 Del Method 02/27/22 14:00 A&P Assessment and plan (1) Psychosis: (2) Hallucinations: (3) Breast mass, right: Qualifiers: Breast mass location: upper outer quadrant Qualified Code(s): N63.11 - Unspecified lump in the right breast, upper outer quadrant (4) Chronic constipation: (5) Traumatic brain injury: (6) Chronic migraine without aura, intractable, with status migrainosus: (7) Bipolar disorder, in full remission, most recent episode manic: (8) Bipolar disorder, curr episode mixed, severe, w/o psychotic features: Plan This is a 46 year old white woman with a history of trauma, post traumatic stress disorder and genetic loading for mental health, addiction and lethality issues who presents on a 96 hour hold reporting her mother has been the reason for her hospitalizations over the years and denying any issues. 1. Continue current medications. We will offer her a mood stabilizer that can be switched to a long-acting injectable. We will attempt to get Vraylar. 2. Encourage individual, group and milieu therapy 3. Continue q-15 minute check for safety 4. Recommend sober living treatment at the highest level of care to which the patient is willing to commit. 5. We will file for 21-day hold on Wednesday. Involuntary Hold Information 96 Hour Hold: 96 Hour Involuntary Admission: Yes 96 Hour Hold Ending Date: 03/02/22 96 Hour Hold Ending Time: 18:45 Attestations NPU Medical Necessity Statement*: Inpatient hospitalization is medically necessary and the clinically appropriate intervention at this time. We will monitor medications and make changes as indicated. Likely length of stay is 7-10 days. Coding Level of Care Code Acute Installer Technician for [facility] Fwd Diagnoses Psychosis F29 Hallucinations R44.3 Breast mass, right N63.11 Breast mass location: upper outer quadrant Chronic constipation K59.09 Traumatic brain injury S06.9X9A Chronic migraine without aura, intractable, with status migrainosus G43.711 Bipolar disorder, in full remission, most recent episode manic F31.74 Bipolar disorder, curr episode mixed, severe, w/o psychotic features F31.63
[2022-02-28 14:00] VITALS: BP 106/70; PULSE 92; TEMP 36.9; O2SAT 97
--- NOTE | 2022-02-28 16:31 | PC.NUTR ---
Consult for multiple allergies and food dislikes received. When assessed on 02/26, Pt's list of foods she could not eat was put in the dietary section of clinical data to help the kitchen with the particulars of her Gluten Free diet. Currently Pt's PO intake is 96%. Will follow up with Pt. on Wednesday.
[2022-02-28] MEDS: trazodone 50 mg Tablet PO (19:46)
[2022-02-28 19:50] VITALS: BP 116/77; PULSE 95; RESP 16; TEMP 36.5; O2SAT 100
[2022-03-01] MEDS: ibuprofen 600 mg Tablet PO (03:12)
--- NOTE | 2022-03-01 04:00 | PC.NURSE ---
Patient reports relief of left hip pain. Rates pain at a 5/10. Patient came to nurse's station demanding various items. When told she could not have some of the things requested she became agitated and started to talk very loudly and became argumentative with several staff. Patient was asked to return to room or go to dayroom so other patient's would not be woken up by her yelling. She continued to be verbally aggressive with staff and was informed that security would be called. Patient returned to room for a few minutes and then sat in hallway on floor for several minutes until security came to floor. Patient then went to dayroom on her own and is currently sitting in a chair reading a book.
--- NOTE | 2022-03-01 04:21 | PC.NURSE ---
Patient came to nurse's station complaining of Left hip pain. Rated pain at a 10/10 PRN pain medication offered. Agreed to take Ibuprofen as ordered. Administered without difficulty. Asked if this residential mortgage underwriter could assist her back to room because of pain in hip. Walked with patient back to room. At that time patient started a conversation regarding her mother and then quickly went to another subject that did not pertain to initial conversation. Patient continued to talk rapidly with tangential thoughts noted. Attempted to redirect patient several times but was not successful. Spent approximately 25 minutes with patient while she talked about various subjects.
[2022-03-01 06:00] VITALS: BP 112/77; PULSE 94; RESP 18; TEMP 36.7; O2SAT 97
--- NOTE | 2022-03-01 08:07 | P.NPUPN_ITS ---
Subjective NPU Subjective: Patient presents today reporting that she is doing okay. She reports that she is sleeping okay which continue to be an improvement versus days ago. We discussed the fact that Dr. Chauhan will be coming tomorrow and that he would have a fresh look at her situation and be able to consider an al ternative to our current to trajectory. Otherwise she reports just being tired. Mental Status Exam MSE Comments: This is an overweight white woman in hospital scrubs with adequate grooming and eye contact. No abnormal movements except for psychomotor agitation. Cooperative with exam in mild to moderate distress. Speech was normal rate and volume. Mood described as fine, affect remains irritable. Thought process, organized. Thought content: patient denies suicidal or homicidal ideation, endorses paranoia and grandiose delusions noted and denies any auditory or visual hallucinations. Attention and concentration are intact and memory appeared impacted by her delusions but intermittently reliable but none were formally tested. She is alert and oriented times three. Insight and judgment are limited. Impulse control is impaired. Vitals/I&O/Wt Last Vital Signs Temp 97.7 F 02/28/22 19:50 Pulse 95 02/28/22 19:50 Resp 16 02/28/22 19:50 BP 116/77 02/28/22 19:50 Pulse Ox 100 02/28/22 19:50 O2 Del Method 02/28/22 14:00 Weight last 48 hrs Weight 68.583 kg A&P Assessment and plan (1) Psychosis: (2) Hallucinations: (3) Breast mass, right: Qualifiers: Breast mass location: upper outer quadrant Qualified Code(s): N63.11 - Unspecified lump in the right breast, upper outer quadrant (4) Chronic constipation: (5) Traumatic brain injury: (6) Chronic migraine without aura, intractable, with status migrainosus: (7) Bipolar disorder, in full remission, most recent episode manic: (8) Bipolar disorder, curr episode mixed, severe, w/o psychotic features: Plan This is a 46 year old white woman with a history of trauma, post traumatic stress disorder and genetic loading for mental health, addiction and lethality issues who presents on a 96 hour hold reporting her mother has been the reason for her hospitalizations over the years and denying any issues. 1. Continue current medications. We will offer her a mood stabilizer that can be switched to a long-acting injectable. We will attempt to get Vraylar. 2. Encourage individual, group and milieu therapy 3. Continue q-15 minute check for safety 4. Recommend sober living treatment at the highest level of care to which the patient is willing to commit. 5. We will file for 21-day hold on tomorrow. Involuntary Hold Information 96 Hour Hold: 96 Hour Involuntary Admission: Yes 96 Hour Hold Ending Date: 03/02/22 96 Hour Hold Ending Time: 18:45 Attestations NPU Medical Necessity Statement*: Inpatient hospitalization is medically necessary and the clinically appropriate intervention at this time. We will monitor medications and make changes as indicated. Likely length of stay is 7-10 days. Likely longer if 21-day-old granted. Coding Level of Care Code Acute Independent Film Maker for Mckenna Dalyd Diagnoses Psychosis F29 Hallucinations R44.3 Breast mass, right N63.11 Breast mass location: upper outer quadrant Chronic constipation K59.09 Traumatic brain injury S06.9X9A Chronic migraine without aura, intractable, with status migrainosus G43.711 Bipolar disorder, in full remission, most recent episode manic F31.74 Bipolar disorder, curr episode mixed, severe, w/o psychotic features F31.63
--- NOTE | 2022-03-01 11:01 | PC.NURSE ---
Medication ordered at [facility] Ordered 1.5mg Vrayler for pt at [facility], prescription will be ready for pick-up on 03/02/2022.
[2022-03-01 13:33] VITALS: BP 113/78; PULSE 99; RESP 22; TEMP 36.9; O2SAT 97
[2022-03-01 20:48] VITALS: BP 117/80; PULSE 104; RESP 18; TEMP 36.7; O2SAT 98
[2022-03-01 22:00] VITALS: BP 117/80; PULSE 104; RESP 18; TEMP 36.7; O2SAT 98
--- NOTE | 2022-03-02 00:12 | PC.NURSE ---
PT UP TO DESK REQUESTING I WANT A BENADRYL . PT WAS OFFERED HYDROXYZINE 50MG. ATTEMPT TO EDUCATE PT THAT THE SAID MEDICATION IS AN ANTIHISTAMINE JUST BENADRYL IS. PT REFUSED SAID MEDICATION. PT THEN INSISTED, I WANT TO TAKE A BATH THEN! PT GIVEN HYGIENE BOX AND ESCORTED TO TUB ROOM. PT INFORMED THAT DUE TO STAFFING AND TUB DEMAND, A 20 MINUTE LIMIT INSTEAD OF THE HOUR LONG BATH SHE LIKES TO TAKE. PT VOICED THAT SHE WILL TAKE LONG SHE WANTS.
--- NOTE | 2022-03-02 00:40 | PC.NURSE ---
PT BACK TO ROOM, WEARING UNIT SCRUB PANTS, AND LONG SLEEVE DARK SHIRT AND BRIGHT GREEN T-SHIRT OVER IT. PT WAS SUPPLIED WITH A FULL SET OF SCRUBS PRIOR TO BATH. RN WITH PT INQUIRING WHY PT IS NOT WEARING REQUIRED SCRUBS.
[2022-03-02 06:00] VITALS: BP 108/73; PULSE 88; RESP 18; TEMP 36.6; O2SAT 100
--- NOTE | 2022-03-02 06:22 | NUR.SHIFT ---
Patient is confrontational with certain staff. It does not matter the subject matter, Patient will become agitated and impossible to redirect!! There was an episode tonight in regard to the patient wanting Benadryl due to a rash that the patient states she has around her genitalia area R/T being on her menses and allergic to the pads supplied. Patient did not have an order for PO Benadryl so was offered Vistaril for now. Patient became VERY upset and yelled at the PILE DRIVER OPERATOR HELPER I DON'T WANT ANY FUCKING VISTERIL, I WANT BENADRYL!! Patient stomped off angered. Earlier patient had asked to take a bath. She was instructed that due to staffing (one PILE DRIVER OPERATOR HELPER and one RN) there would need to be a time limit on a bath (patient took 1 1/2 hour bath last night) Patient attempted to negotiate the amount of time limit. She was angry and unacceptable of that negotiation as the time limit was cut to 20 minutes. Again the patient got angry and upset yelling at the PILE DRIVER OPERATOR HELPER. Patient requested a complaint form for the PILE DRIVER OPERATOR HELPER as well as an aid on day shift that she had a confrontation with a few days ago. Forms were supplied.
--- NOTE | 2022-03-02 07:53 | PC.NURSE ---
PT COMPLAINS OF VAGINAL REDNESS AND ITCHING. STATES SHE IS ALLERGIC TO THE PADS AND UNDERWEAR WE PROVIDE. PT STATES I WANT TO CUT MY LABIA OFF, THATS HOW BAD IT IS BOTHERING ME . THIS NURSE TOLD PT THE PROVIDER WOULD BE NOTIFIED. PT HAS HAD UNPROTECTED SEX WITH MULTIPLE PARTNERS AND WONDERS IF IT COULD BE CAUSED BY AN STD. PT THEN STATES I WANT MY THYROID TESTED, IT IS THE HIGHEST IT HAS EVER BEEN. I AM GOING INTO A THYROID STORM.
[2022-03-02 14:00] VITALS: BP 117/65; PULSE 94; RESP 18; TEMP 36.6; O2SAT 98
--- NOTE | 2022-03-02 18:10 | P.NPUPN_ITS ---
Subjective NPU Subjective: Patient was seen on rounds this morning. She continue to show evidence of active irritability and hostility. She continued to show evidence of overvalued ideas on the milieu as she had acknowledged having slept only 30 minutes 2 nights ago and reported no adverse consequences from this. She had reported that she had been diagnosed with bipolar disorder but reports that her mother has been largely responsible for all of the repeated efforts to have her hospitalized and treated. She reports having moved around to multiple states in efforts of trying to have her treated since she was younger. She had minimized her previous claims stating that she was in control of specific characters in a book that she was reading in her room. She states that she is waiting to speak with someone in court and would likely be forced to take medications. She reports having started multiple medications in the past and states that they had not worked for her but was unable to provide specific reasons regarding all of the various failures. She had admitted to noncompliance on medications once she left the hospital. She had reported that others were preventing her from having her stage IV metastatic cancer in her breast from being properly treated and evaluated. Mental Status Exam MSE Comments: This is an overweight white woman in hospital scrubs with adequate grooming and eye contact. No abnormal movements except for psychomotor agitation. Cooperative with exam in mild to moderate distress. Speech was increased in rate, normal volume. Mood described as not good. affect is frustrated and irritable. Thought process, organized. Thought content: patient denies suicidal or homicidal ideation, endorses paranoia and grandiose delusions noted and denies any auditory or visual hallucinations. Attention and concentration are intact and memory appeared intermittently reliable but none were formally tested. She is alert and oriented times three. Insight was limited and judgment are limited. Impulse control is impaired. Vitals/I&O/Wt Last Vital Signs Temp 97.9 F 03/02/22 14:00 Pulse 94 03/02/22 14:00 Resp 18 03/02/22 14:00 BP 117/65 03/02/22 14:00 Pulse Ox 98 03/02/22 14:00 O2 Del Method 03/02/22 06:00 Weight last 48 hrs Weight 68.583 kg A&P Assessment and plan (1) Psychosis: (2) Hallucinations: (3) Breast mass, right: Qualifiers: Breast mass location: upper outer quadrant Qualified Code(s): N63.11 - Unspecified lump in the right breast, upper outer quadrant (4) Chronic constipation: (5) Traumatic brain injury: (6) Chronic migraine without aura, intractable, with status migrainosus: (7) Bipolar disorder, in full remission, most recent episode manic: (8) Bipolar disorder, curr episode mixed, severe, w/o psychotic features: Plan This is a 46 year old white woman with a history of trauma, post traumatic stress disorder and genetic loading for mental health, addiction and lethality issues who presents on a 96 hour hold reporting her mother has been the reason for her hospitalizations over the years and denying any issues. 1. Continue current medications. We will offer her a mood stabilizer that can be switched to a long-acting injectable. 2. Encourage individual, group and milieu therapy 3. Continue q-15 minute check for safety 4. Recommend sober living treatment at the highest level of care to which the patient is willing to commit. 5. Filed for 21-day hold today, concern regarding medical concerns regarding untreated breast mass. Involuntary Hold Information 96 Hour Hold: 96 Hour Involuntary Admission: Yes 96 Hour Hold Ending Date: 03/02/22 96 Hour Hold Ending Time: 18:45 Attestations NPU Medical Necessity Statement*: Inpatient hospitalization is medically necessary and the clinically appropriate intervention at this time. We will monitor medications and make changes as indicated. Likely length of stay is 7-10 days. Coding Level of Care Code Established Pt Acute Director Of Enterprise Applications for Mckenna Angelo Patient Type Established History Problem Focused Exam Problem Focused Medical Decision Making Straight Forward Diagnoses Psychosis F29 Hallucinations R44.3 Breast mass, right N63.11 Breast mass location: upper outer quadrant Chronic constipation K59.09 Traumatic brain injury S06.9X9A Chronic migraine without aura, intractable, with status migrainosus G43.711 Bipolar disorder, in full remission, most recent episode manic F31.74 Bipolar disorder, curr episode mixed, severe, w/o psychotic features F31.63
[2022-03-02 22:00] VITALS: BP 109/72; PULSE 98; RESP 16; TEMP 36.8; O2SAT 98
--- NOTE | 2022-03-02 22:04 | PC.NURSE ---
PT HAS BEEN UP TO THE DESK SEVERAL TIMES THIS EVENING YELLING AT ALL STAFF,(MOSTLY THIS NURSE). PT WAS NOTED TO BE ON HER THIRD PHONE CALL WITH IN A 1 HOUR PERIOD. PT WAS REMINDED THAT THERE IS A 15 MINUTE TIME LIMIT ON EACH CALL. PT GOT UPSET THAT SHE WAS TOLD TO GET OFF THE PHONE. PT STARTED YELLING AND CURSING AT STAFF FOR TAKING MY STUFF , GOING THROUGH MY STUFF . PT DEMANDING A CERTAIN KIND OF CRANBERRY JUICE. WHEN TOLD THE HOSPITAL DOES NOT HAVE THAT KIND, PT DEMANDED TO BE ABLE TO USE THE PHONE SO SHE COULD HAVE SOMEONE BRING HER SOME. PT AGAIN STARTED YELLING AT STAFF WHEN PT WAS INFORMED THAT SHE COULD NOT HAVE ANY KIND OF FOOD OR DRINK BROUGHT INTO HER. PT THEN ASKED THE RN IF SHE COULD CALL AND HAVE IT BROUGHT IN FOR HER. PT AGAIN STARTED YELLING WHEN THE RN TOLD HER SHE CAN NOT DO THAT. PT HAS DUMPED PUZZLE PIECES OUT ON THE TABLE AND ON THE COUNTER TOP. PT LAYERED PAPER TOWELS (SEVERAL) IN THE SINK AND THEN LAYERED PUZZLE PIECES ON TOP. PT HAS SCATTERED HER PAPERWORK ON ONE OF THE TABLE TOPS. PT ACCUSED STAFF OF STEALING HER STUFF FROM HER ROOM. PT HAS BEEN TOLD MULTIPLE TIMES BY ALL STAFF THAT SHE CAN NOT COLLECT ITEMS SUCH SPOONS, SUGAR, SALT, BUTTER, SNACK ITEMS, FOOD ITEMS AND TAKE THEM TO HER ROOM. PT GETS UPSET WHEN HER ROOM GETS SEARCHED AND SAID ITEMS ARE TAKEN AWAY FROM HER. PT CLAPS HER HANDS LOUDLY AT STAFF AND YELLS DON'T TALK TO ME, DON'T TALK TO ME. PT WAS REMINDED OF UNIT RULES, THEN STATES THERE IS NO RULES . PT HAS UPSET SEVERAL OF OUR OTHER PTS, CAUSING THEM TO YELL OUT. AT THIS TIME, PT IS STANDING AT THE COUNTER SORTING THROUGH PUZZLE PIECES HAVING A FULL BLOWN CONVERSATION WITH SOMEONE WHO IS NOT THERE.
[2022-03-03 06:00] VITALS: BP 113/77; PULSE 94; RESP 18; TEMP 36.8; O2SAT 97
[2022-03-03 14:00] VITALS: BP 130/88; PULSE 110; RESP 16; TEMP 36.8; O2SAT 98
--- NOTE | 2022-03-03 17:21 | W.PM.NPUPNS ---
Subjective NPU Subjective: Patient was seen on rounds this morning. She continues to have limited sleep on the milieu and continues to appear somewhat irritable and hostile about being hospitalized. She had reported that she would be willing to consider taking medications prior to her 21-day hearing tomorrow. She reports that she had had some difficulties in the past with medications for treating her bipolar but was interested in consideration of either Latuda or Vraylar. Patient stated that she would be agreeable to consultation from medicine regarding her breast mass. Mental Status Exam MSE Comments: This is an overweight white woman in hospital scrubs with adequate grooming and eye contact. No abnormal movements except for psychomotor agitation. Cooperative with exam in mild to moderate distress. Speech was normal in rate, rhythm, and volume. Mood described as allright. affect was less irritable today. Thought process, organized. Thought content: patient denies suicidal or homicidal ideation, appeared expansive with clear grandiosity and overvalued ideas. Attention and concentration are intact and memory appeared intermittently reliable but none were formally tested. She is alert and oriented times three. Insight was limited and judgment are limited. Impulse control is impaired. Vitals/I&O/Wt Last Vital Signs Temp 98.2 F 03/03/22 14:00 Pulse 110 H 03/03/22 14:00 Resp 16 03/03/22 14:00 BP 130/88 03/03/22 14:00 Pulse Ox 98 03/03/22 14:00 O2 Del Method 03/03/22 06:00 A&P Assessment and plan (1) Psychosis: (2) Hallucinations: (3) Breast mass, right: Qualifiers: Breast mass location: upper outer quadrant Qualified Code(s): N63.11 - Unspecified lump in the right breast, upper outer quadrant (4) Chronic constipation: (5) Traumatic brain injury: (6) Chronic migraine without aura, intractable, with status migrainosus: (7) Bipolar disorder, in full remission, most recent episode manic: (8) Bipolar disorder, curr episode mixed, severe, w/o psychotic features: Plan This is a 46 year old white woman with a history of trauma, post traumatic stress disorder and genetic loading for mental health, addiction and lethality issues who presents on a 96 hour hold reporting her mother has been the reason for her hospitalizations over the years and denying any issues. 1. Start Latuda 40mg at 6PM after dinner. 2. Encourage individual, group and milieu therapy 3. Continue q-15 minute check for safety 4. Recommend sober living treatment at the highest level of care to which the patient is willing to commit. 5. Filed for 21-day hold, concern regarding medical concerns regarding untreated breast mass. Involuntary Hold Information 96 Hour Hold: 96 Hour Involuntary Admission: Yes 96 Hour Hold Ending Date: 03/02/22 96 Hour Hold Ending Time: 18:45 Attestations NPU Medical Necessity Statement*: Inpatient hospitalization is medically necessary and the clinically appropriate intervention at this time. We will monitor medications and make changes as indicated. Likely length of stay is 7-10 days. Coding Level of Care Code Established Pt Acute Revenue Settlements Administrator for [employer] Fwd Patient Type Established History Problem Focused Exam Problem Focused Medical Decision Making Straight Forward Diagnoses Psychosis F29 Hallucinations R44.3 Breast mass, right N63.11 Breast mass location: upper outer quadrant Chronic constipation K59.09 Traumatic brain injury S06.9X9A Chronic migraine without aura, intractable, with status migrainosus G43.711 Bipolar disorder, in full remission, most recent episode manic F31.74 Bipolar disorder, curr episode mixed, severe, w/o psychotic features F31.63
--- NOTE | 2022-03-03 18:29 | PC.NURSE ---
med refusal Pt refused to take the prescribed dose of 40mg of Latuda. Pt stated that she would just wait till after court tomorrow.
[2022-03-03 19:50] VITALS: BP 103/72; PULSE 97; RESP 18; TEMP 36.7; O2SAT 98
[2022-03-04 06:00] VITALS: BP 127/88; PULSE 94; RESP 18; TEMP 36.3; O2SAT 100
--- NOTE | 2022-03-04 08:03 | PC.NURSE ---
PATIENT DENIES SI/HI AND AH/VH. PATIENT APPROACHED THIS RN IN THE HALLWAY WHERE SHE ASKED HOW MUCH SLEEP I HAD GOTTEN AND THEN SAID, I WAKE UP AND I'M STILL ASLEEP, BUT NOBODY BELIEVES ME. WHAT ARE WE GONNA DO WHEN THE KIDS THINK THE DREAMS ARE REAL AND START SHOOTING OUR OWN KIDS? IT STARTED WITH NOEMI, THEN GLENIS, THEN WHAT?
[2022-03-04] MEDS: ibuprofen 600 mg Tablet PO (11:00)
--- NOTE | 2022-03-04 11:21 | PC.NURSE ---
PATIENT STATED, I'M GOING TO GO DOWN TO MY ROOM AND SING LOUD I CAN!!! OKAY? GOT IT? PATIENT CONTINUES TO TRY TO DRAW ATTENTION OF STAFF AND OTHER PATIENTS TO HERSELF.
[2022-03-04 14:00] VITALS: BP 118/74; PULSE 107; RESP 16; TEMP 36.3; O2SAT 100
--- NOTE | 2022-03-04 15:44 | PC.NURSE ---
PATIENT LEFT FACILITY TO GO TO COURT AT [id number]
--- NOTE | 2022-03-04 16:14 | PC.NURSE ---
Patient very argumentative when officer came to pick her up for her court hearing. Patient stated she was angry that she wasn't given more time to get ready because she had to be at court at 3:30 and it was only 3 when the officer arrived to pick her up. Patient began gathering every item in her room to place in a bag to take with her because she stated, I'll take whatever the fuck I need to to make me feel better. She then said she had to urinate and stayed in the bathroom for approximately 10-15 minutes. This RN and other staff were able to get her to go with the officer to her hearing.
--- NOTE | 2022-03-04 18:50 | P.NPUPN_ITS ---
Subjective NPU Subjective: Patient was seen on rounds this morning and was also seen at the guardianship hearing today. Patient had expressed concern about being under the care of her guardian and described having problems with her temporary guardian that was assigned today. She was also placed involuntarily for a 21-day hold today. She had expressed concern about being medicated but had taken her Latuda yesterday without issue. However the patient had refused her Latuda tonight despite her having consumed her meal first. She continued to appear agitated and hostile particularly after her hearing today. She had been social on the milieu. She had continued to minimize her active problems with not requiring sleep and increased agitation and hostility. The mother had described in some detail about the patient's sudden but continuous decline in functioning over the last several years leading to her inability to maintain care for herself. Mental Status Exam MSE Comments: This is an overweight white woman in hospital scrubs with adequate grooming and eye contact. No abnormal movements except for psychomotor agitation. Cooperative with exam in mild to moderate distress. Speech was normal in rhythm and volume but increased in production. Mood described as fine. affect was subdued and mood incongruent. Her thought process appeared linear and organized initially but appeared to derail. Thought process, organized. Thought content: patient denies suicidal or homicidal ideation, appeared expansive with clear grandiosity and overvalued ideas. Attention and concentration are intact and memory appeared intermittently reliable but none were formally tested. She is alert and oriented times three. Insight was limited and judgment are limited. Impulse control is impaired. Vitals/I&O/Wt Last Vital Signs Temp 97.3 F L 03/04/22 14:00 Pulse 107 H 03/04/22 14:00 Resp 16 03/04/22 14:00 BP 118/74 03/04/22 14:00 Pulse Ox 100 03/04/22 14:00 O2 Del Method 03/03/22 06:00 A&P Assessment and plan (1) Psychosis: (2) Hallucinations: (3) Breast mass, right: Qualifiers: Breast mass location: upper outer quadrant Qualified Code(s): N63.11 - Unspecified lump in the right breast, upper outer quadrant (4) Chronic constipation: (5) Traumatic brain injury: (6) Chronic migraine without aura, intractable, with status migrainosus: (7) Bipolar disorder, in full remission, most recent episode manic: (8) Bipolar disorder, curr episode mixed, severe, w/o psychotic features: Plan This is a 46 year old white woman with a history of trauma, post traumatic stress disorder and genetic loading for mental health, addiction and lethality issues who presents on a 96 hour hold reporting her mother has been the reason for her hospitalizations over the years and denying any issues. 1. Start Latuda 40mg at 6PM after dinner. 2. Encourage individual, group and milieu therapy 3. Continue q-15 minute check for safety 4. Recommend sober living treatment at the highest level of care to which the patient is willing to commit. 5. Occupational therapy evaluation tommorow, assess level of functioning independently, Involuntary Hold Information 96 Hour Hold: 96 Hour Involuntary Admission: Yes 96 Hour Hold Ending Date: 03/02/22 96 Hour Hold Ending Time: 18:45 Attestations NPU Medical Necessity Statement*: Inpatient hospitalization is medically necessary and the clinically appropriate intervention at this time. We will monitor medications and make changes as indicated. Likely length of stay is 7-10 days. Coding Level of Care Code Established Pt Acute Final Application Reviewer for Chg Fwd Patient Type Established History Problem Focused Exam Problem Focused Medical Decision Making Straight Forward Diagnoses Psychosis F29 Hallucinations R44.3 Breast mass, right N63.11 Breast mass location: upper outer quadrant Chronic constipation K59.09 Traumatic brain injury S06.9X9A Chronic migraine without aura, intractable, with status migrainosus G43.711 Bipolar disorder, in full remission, most recent episode manic F31.74 Bipolar disorder, curr episode mixed, severe, w/o psychotic features F31.63
[2022-03-04 22:00] VITALS: BP 119/80; PULSE 90; RESP 18; TEMP 36.9; O2SAT 98
--- NOTE | 2022-03-05 04:21 | PC.NURSE ---
Patient came to nurse's station requesting to speak to this scientific writer. Reported she had a BM with a small amount of blood. This scientific writer went to patient's bathroom to assess. Large hard stool noted in toilet with a small amount of blood present. Patient does report a hx of constipation and hemorrhoids. Patient offered medication for constipation or pain relief for hemorrhoids. Patient refused any medication stating Nothing works. I've tried all kinds of medication in the past. Encouraged patient to drink plenty of water and choose foods high in fiber. Also reminded patient to come to staff with any concerns or if she changed her mind about medications. Voiced understanding.
[2022-03-05 06:00] VITALS: BP 106/75; PULSE 95; RESP 18; TEMP 36.6; O2SAT 96
[2022-03-05] MEDS: ibuprofen 600 mg Tablet PO (08:23)
[2022-03-05 14:00] VITALS: BP 111/76; PULSE 77; RESP 18; TEMP 36.4; O2SAT 100
[2022-03-05] MEDS: paliperidone palmitate 234 mg Syringe IM (16:38)
--- NOTE | 2022-03-05 19:11 | PC.NURSE ---
med refusal Pt was slapping herself in the face saying Im not gonna take the fucking meds!! Why don't you understand that!!! Pt stated that she took the Invega shot and she wasn't going to take anything else.
--- NOTE | 2022-03-05 19:28 | P.NPUPN_ITS ---
Subjective NPU Subjective: Patient was seen on rounds this morning and reported that she had refused Latuda because she had not had a good meal last night. Patient had reported success in the past with the Invega once a month and requested that she be started on that today. Patient had reported concern about her mother as a guardian. She had reported that she was sleeping fine despite evidence suggesting that the patient had slept approximately 30 to 45 minutes for the past 2 nights. Patient had been spending an inordinate amount of time cleaning on the milieu. She also appeared to engage in some collecting of papers in her room. She had been social on the milieu but again remained somewhat guarded and hostile while minimizing any problems in groups or with staff. She continued to report having no idea why she was here in the hospital as she had blamed her mother for her problems that had landed her in her situation today. Mental Status Exam MSE Comments: This is an overweight white woman in hospital scrubs with minimal grooming and eye contact. No abnormal movements noted. Cooperative with exam in mild to moderate distress. Speech was normal in rhythm and volume but increased in production and continued expansive style. Mood described as okay. affect was subdued and mood incongruent. Her thought process appeared tangential. Thought process was linear and organized. Thought content: patient denies suicidal or homicidal ideation, clear grandiosity and paranoia and overvalued ideas. Attention and concentration are intact and memory appeared intermittently reliable but none were formally tested. She is alert and oriented times three. Insight was limited and judgment are limited. Impulse control is impaired. Vitals/I&O/Wt Last Vital Signs Temp 97.6 F 03/05/22 14:00 Pulse 77 03/05/22 14:00 Resp 18 03/05/22 14:00 BP 111/76 03/05/22 14:00 Pulse Ox 100 03/05/22 14:00 O2 Del Method 03/05/22 14:00 A&P Assessment and plan (1) Psychosis: (2) Hallucinations: (3) Breast mass, right: Qualifiers: Breast mass location: upper outer quadrant Qualified Code(s): N63.11 - Unspecified lump in the right breast, upper outer quadrant (4) Chronic constipation: (5) Traumatic brain injury: (6) Chronic migraine without aura, intractable, with status migrainosus: (7) Bipolar disorder, in full remission, most recent episode manic: (8) Bipolar disorder, curr episode mixed, severe, w/o psychotic features: Plan This is a 46 year old white woman with a history of trauma, post traumatic stress disorder and genetic loading for mental health, addiction and lethality issues who presents on a 96 hour hold reporting her mother has been the reason for her hospitalizations over the years and denying any issues. 1. Discontinue Latuda, patient continues to create bizarre reasons for refusal, Patient given Invega IM 234mg today. 2. Encourage individual, group and milieu therapy 3. Continue q-15 minute check for safety 4. Recommend sober living treatment at the highest level of care to which the patient is willing to commit. Involuntary Hold Information 96 Hour Hold: 96 Hour Involuntary Admission: Yes 96 Hour Hold Ending Date: 03/02/22 96 Hour Hold Ending Time: 18:45 Attestations NPU Medical Necessity Statement*: Inpatient hospitalization is medically necessary and the clinically appropriate intervention at this time. We will monitor medications and make changes as indicated. Likely length of stay is 7-10 days. Coding Level of Care Code Established Pt Acute Steak Sauce Maker for Chg Fwd Patient Type Established History Problem Focused Exam Problem Focused Medical Decision Making Straight Forward Diagnoses Psychosis F29 Hallucinations R44.3 Breast mass, right N63.11 Breast mass location: upper outer quadrant Chronic constipation K59.09 Traumatic brain injury S06.9X9A Chronic migraine without aura, intractable, with status migrainosus G43.711 Bipolar disorder, in full remission, most recent episode manic F31.74 Bipolar disorder, curr episode mixed, severe, w/o psychotic features F31.63
--- NOTE | 2022-03-05 19:30 | PC.NURSE ---
Patient approached this consumer loan underwriter demanding to have a bath. Explained to patient that she would have to wait til after assessments and medication administration. Gave an approximate time of when she might be able to take bath. Patient became angry and stated I've been asking for a fucking bath since 3pm and nobody is doing anything for me. Also I've been moved again and have a roommate. I'm so fucking mad at all of you. And then you gave me some stupid injection I don't need. You're all pathetic! . Attempted to redirect but patient continued to talk over this consumer loan underwriter. After several minutes patient stated Just forget it! Patient went to place a phone call.
[2022-03-05 22:00] VITALS: BP 111/76; PULSE 77; RESP 18; TEMP 36.4; O2SAT 100
--- NOTE | 2022-03-06 00:44 | PC.NURSE ---
Patient resting in bed with eyes closed at this time. Patient took a hot shower and was moved to a room with a single bed earlier. After director of retail marketing discussed with patient what was acceptable behavior. Also discussed positive coping skills. Patient states she is tired of being here and took the injection today so she could get on with her life. Asked staff when she would be discharged. Explained to patient that the MD was the person who decides discharges. Also reiterated what is appropriate behavior and unit expectations for patients. Patient stated she understood.
[2022-03-06 06:00] VITALS: BP 120/86; PULSE 89; RESP 18; TEMP 36.9; O2SAT 99
[2022-03-06] MEDS: ibuprofen 600 mg Tablet PO ×2 (06:26→21:11)
--- NOTE | 2022-03-06 08:42 | PC.NURSE ---
shift assessment pt did allow this nurse to listen to her heart and lungs, wouldn't take a deep breath but does not appear to be in any distress. refused to answer questions asked of her, staff asked if she was suicidal or homicidal, pt refused to answer
[2022-03-06 14:00] VITALS: RESP 16
--- NOTE | 2022-03-06 15:40 | W.PM.NPUPNS ---
Subjective NPU Subjective: Patient was seen on rounds this morning. She continues to tracy papers in her room. She had been compliant with taking her Invega initial injection intramuscularly yesterday. She continued to have sleep continuity disruption and required limited sleep having slept only 1 hour last night. Patient had minimized having any symptoms. She had proceeded to complain repeatedly about her lack of oral intake stating that she had many allergies and stating that she was frustrated with being here. Despite this, she had reported that she would be okay with being placed in a nice facility and states that she would comply with the rules of the unit. Mental Status Exam MSE Comments: This is an overweight white woman in hospital scrubs with minimal grooming and eye contact. No abnormal movements noted. Cooperative with exam in mild to moderate distress. Speech was normal in rhythm and volume but increased in production and continued expansive style. Mood described as allright. affect was intense and labile. Her thought process appeared circumstantial. Thought process was linear and organized. Thought content: patient denies suicidal or homicidal ideation, clear grandiosity and paranoia and overvalued ideas. Attention and concentration are intact and memory appeared intermittently reliable but none were formally tested. She is alert and oriented times three. Insight was limited and judgment are limited. Impulse control is impaired. Vitals/I&O/Wt Last Vital Signs Temp 98.5 F 03/06/22 06:00 Pulse 89 03/06/22 06:00 Resp 18 03/06/22 06:00 BP 120/86 03/06/22 06:00 Pulse Ox 99 03/06/22 06:00 O2 Del Method 03/06/22 06:00 A&P Assessment and plan (1) Psychosis: (2) Hallucinations: (3) Breast mass, right: Qualifiers: Breast mass location: upper outer quadrant Qualified Code(s): N63.11 - Unspecified lump in the right breast, upper outer quadrant (4) Chronic constipation: (5) Traumatic brain injury: (6) Chronic migraine without aura, intractable, with status migrainosus: (7) Bipolar disorder, in full remission, most recent episode manic: (8) Bipolar disorder, curr episode mixed, severe, w/o psychotic features: Plan This is a 46 year old white woman with a history of trauma, post traumatic stress disorder and genetic loading for mental health, addiction and lethality issues who presents on a 96 hour hold reporting her mother has been the reason for her hospitalizations over the years and denying any issues. 1. Patient given Invega IM 234mg on 03/05/22. 2. Encourage individual, group and milieu therapy 3. Continue q-15 minute check for safety 4. Recommend sober living treatment at the highest level of care to which the patient is willing to commit. We will likely seek placement in adult long chain quiller tender facility with temporary guardianship in place. 5. Patient complaining of allergies and lack of success with Depakote, [place], abilify, geodon, seroquel and zyprexa in the past. Involuntary Hold Information 96 Hour Hold: 96 Hour Involuntary Admission: Yes 96 Hour Hold Ending Date: 03/02/22 96 Hour Hold Ending Time: 18:45 Attestations NPU Medical Necessity Statement*: Inpatient hospitalization is medically necessary and the clinically appropriate intervention at this time. We will monitor medications and make changes as indicated. Likely length of stay is 10-14 days given need for placement in facility. Coding Level of Care Code Established Pt Acute Balancing Machine Set Up Worker for Chg Fwd Patient Type Established History Problem Focused Exam Problem Focused Medical Decision Making Straight Forward Diagnoses Psychosis F29 Hallucinations R44.3 Breast mass, right N63.11 Breast mass location: upper outer quadrant Chronic constipation K59.09 Traumatic brain injury S06.9X9A Chronic migraine without aura, intractable, with status migrainosus G43.711 Bipolar disorder, in full remission, most recent episode manic F31.74 Bipolar disorder, curr episode mixed, severe, w/o psychotic features F31.63
[2022-03-06 19:59] VITALS: BP 104/70; PULSE 111; RESP 18; O2SAT 98
[2022-03-07 06:00] VITALS: RESP 17
[2022-03-07] MEDS: ibuprofen 600 mg Tablet PO (08:16)
--- NOTE | 2022-03-07 08:50 | PC.NURSE ---
Pt stated that she no longer wishes to be call her name . Staff can call her clock or paper or whatever else, just not her name. Pt wishes that no one would knock on her door anymore to tell her that the food is on the unit.
--- NOTE | 2022-03-07 12:44 | P.NPUPN_ITS ---
Subjective NPU Subjective: Patient is a 46-year-old white female with psychotic disorder not otherwise specified and michelle admitted with overall decline in her ability to care for herself. She remains under temporary guardianship under her mother's care. She had continued to spend time in her room and stated that she was frustrated at not having her needs met here in the hospital regarding her oral intake. Staff notes the patient had been redirectable but remained irritable. She had some difficulties with sleep continuity disruption reported today. She reported no side effects from the Invega injection and stated that she was ready to get the additional injection as soon as possible. She reports that she u nderstands that she will likely have to go to a facility with supervision upon discharge and states that she hopes that it would be nice. She continues to tracy papers in her room and did not wish to elaborate on what all of these papers were for at this time. Mental Status Exam MSE Comments: This is an overweight white woman in hospital scrubs with minimal grooming and eye contact. No abnormal movements noted. Cooperative with exam in mild distress. Speech was normal in rhythm and volume but increased in production. mood described as okay. Her affect was intense and labile. Her thought process appeared circumstantial. Thought process was linear and organized. Thought content: patient denies suicidal or homicidal ideation, she continued to show evidence of grandiosity. Attention and concentration are intact and memory appeared intermittently reliable but none were formally rosalia senait. She is alert and oriented times three. Insight was limited and judgment are limited. Impulse control is impaired. Vitals/I&O/Wt Last Vital Signs Temp 98.5 F 03/06/22 06:00 Pulse 111 H 03/06/22 19:59 Resp 17 03/07/22 06:00 BP 104/70 03/06/22 19:59 Pulse Ox 98 03/06/22 19:59 O2 Del Method 03/06/22 06:00 A&P Assessment and plan (1) Psychosis: (2) Hallucinations: (3) Breast mass, right: Qualifiers: Breast mass location: upper outer quadrant Qualified Code(s): N63.11 - Unspecified lump in the right breast, upper outer quadrant (4) Chronic constipation: (5) Traumatic brain injury: (6) Chronic migraine without aura, intractable, with status migrainosus: (7) Bipolar disorder, in full remission, most recent episode manic: (8) Bipolar disorder, curr episode mixed, severe, w/o psychotic features: Plan This is a 46 year old white woman with a history of trauma, post traumatic stress disorder and genetic loading for mental health, addiction and lethality issues who presents on a 96 hour hold reporting her mother has been the reason for her hospitalizations over the years and denying any issues. 1. Patient given Invega IM 234mg on 03/05/22. 2. Encourage individual, group and milieu therapy 3. Continue q-15 minute check for safety 4. Recommend sober living treatment at the highest level of care to which the patient is willing to commit. We will likely seek placement in adult [place] [facility] facility with temporary guardianship in place. 5. Patient complaining of allergies and lack of success with Depakote, [place], abilify, geodon, seroquel and zyprexa in the past, we could consider addition of vraylar if able to be filled at outside pharmacy. Involuntary Hold Information 96 Hour Hold: 96 Hour Involuntary Admission: Yes 96 Hour Hold Ending Date: 03/02/22 96 Hour Hold Ending Time: 18:45 Attestations NPU Medical Necessity Statement*: Inpatient hospitalization is medically necessary and the clinically appropriate intervention at this time. We will monitor medications and make changes as indicated. Likely length of stay is 10-14 days given need for placement in facility. Coding Level of Care Code Established Pt Acute Wood Scrap Handler for Mckenna Angelo Patient Type Established History Problem Focused Exam Problem Focused Medical Decision Making Straight Forward Diagnoses Psychosis F29 Hallucinations R44.3 Breast mass, right N63.11 Breast mass location: upper outer quadrant Chronic constipation K59.09 Traumatic brain injury S06.9X9A Chronic migraine without aura, intractable, with status migrainosus G43.711 Bipolar disorder, in full remission, most recent episode manic F31.74 Bipolar disorder, curr episode mixed, severe, w/o psychotic features F31.63
[2022-03-07 13:19] VITALS: BP 108/72; PULSE 102; RESP 18; TEMP 36.6; O2SAT 99
[2022-03-07 19:32] VITALS: BP 103/64; PULSE 105; RESP 20; TEMP 36.5; O2SAT 98
[2022-03-08 05:30] VITALS: BP 95/62; PULSE 104; RESP 20; TEMP 36.4; O2SAT 96
[2022-03-08 14:00] VITALS: BP 126/88; PULSE 103; RESP 18; TEMP 36.5; O2SAT 94
--- NOTE | 2022-03-08 15:09 | P.NPUPN_ITS ---
Subjective NPU Subjective: Patient is a 46-year-old white female with psychotic disorder not otherwise specified and michelle admitted with overall decline in her ability to care for herself. The patient continued to struggle with falling asleep and stated that she did not need much sleep. She reported no thoughts of hurting herself or others. Patient had reported that she was frustrated at being placed under her mother's care for legal guardianship. She reported that she was frustrated with the lack of ability to eat on the unit as she had reported that the specifics of her diet had led to her not being able to get enough food. The patient initially this morning had apparently slept for 2 to 3 hours after eat ing breakfast. She had reported low energy and low motivation. Staff notes the patient had been more isolative. She was minimally engaged on the unit today. Patient continued to tracy papers in her room and was unable to elaborate regarding why she was collecting these papers. Mental Status Exam MSE Comments: This is an overweight white woman in hospital scrubs with minimal grooming and eye contact. No abnormal movements noted. Cooperative with exam in mild distress. Speech was normal in rhythm and volume with some slight push in speech but less productive. Her mood described as tired. Her affect was more restricted in range today. Her thought process appeared circumstantial. Thought process was linear and organized. Thought content: patient denies suicidal or homicidal ideation, grandiosity appeared less overt today. Attention and concentration are intact and memory appeared in termittently reliable but none were formally tested. She is alert and oriented times three. Insight was limited and judgment are limited. Impulse control is impaired. Vitals/I&O/Wt Last Vital Signs Temp 97.7 F 03/08/22 14:00 Pulse 103 H 03/08/22 14:00 Resp 18 03/08/22 14:00 BP 126/88 03/08/22 14:00 Pulse Ox 94 03/08/22 14:00 O2 Del Method 03/08/22 05:30 Weight last 48 hrs Weight 70.125 kg A&P Assessment and plan (1) Psychosis: (2) Hallucinations: (3) Breast mass, right: Qualifiers: Breast mass location: upper outer quadrant Qualified Code(s): N63.11 - Unspecified lump in the right breast, upper outer quadrant (4) Chronic constipation: (5) Traumatic brain injury: (6) Chronic migraine without aura, intractable, with status migrainosus: (7) Bipolar disorder, in full remission, most recent episode manic: (8) Bipolar disorder, curr episode mixed, severe, w/o psychotic features: Plan This is a 46 year old white woman with a history of trauma, post traumatic stress disorder and genetic loading for mental health, addiction and lethality issues who presents on a 96 hour hold reporting her mother has been the reason for her hospitalizations over the years and denying any issues. 1. Patient given Invega IM 234mg on 03/05/22. 2. Encourage individual, group and milieu therapy 3. Continue q-15 minute check for safety 4. Recommend sober living treatment at the highest level of care to which the patient is willing to commit. We will likely seek placement in adult intermediate card tender facility with temporary guardianship in place. 5. Patient appears to be benefitting from the invega at this time with some improvement in michelle. Involuntary Hold Information 96 Hour Hold: 96 Hour Involuntary Admission: Yes 96 Hour Hold Ending Date: 03/02/22 96 Hour Hold Ending Time: 18:45 Attestations NPU Medical Necessity Statement*: Inpatient hospitalization is medically necessary and the clinically appropriate intervention at this time. We will monitor medications and make changes as indicated. Likely length of stay is 10-14 days given need for placement in facility. Coding Level of Care Code Established Pt Acute Guillotine Trimmer for Mckenna Angelo Patient Type Established History Problem Focused Exam Problem Focused Medical Decision Making Straight Forward Diagnoses Psychosis F29 Hallucinations R44.3 Breast mass, right N63.11 Breast mass location: upper outer quadrant Chronic constipation K59.09 Traumatic brain injury S06.9X9A Chronic migraine without aura, intractable, with status migrainosus G43.711 Bipolar disorder, in full remission, most recent episode manic F31.74 Bipolar disorder, curr episode mixed, severe, w/o psychotic features F31.63
[2022-03-08 21:12] VITALS: BP 124/84; PULSE 108; RESP 18; TEMP 36.8; O2SAT 96
[2022-03-09] MEDS: ibuprofen 600 mg Tablet PO ×3 (00:18→12:58)
[2022-03-09 05:50] VITALS: BP 101/70; PULSE 88; RESP 18; TEMP 36.9; O2SAT 98
[2022-03-09] MEDS: blistex lip oint 7 gm Tube 1 APPLIC TOPICAL (06:03)
[2022-03-09 14:00] VITALS: RESP 16
--- NOTE | 2022-03-09 14:22 | W.PM.NPUPNS ---
Subjective NPU Subjective: Patient is a 46-year-old white female with psychotic disorder not otherwise specified and michelle admitted with overall decline in her ability to care for herself. The patient had obsessed this morning about having sleep problem problems and repeated awakenings at night because staff would continually open and close the doors at night. She continued to report frustration with having her mother as her primary guardian. She had been less isolative on the milieu. There was some increase in sleep with the patient not having as many hours of insomnia. She minimized any racing thoughts. She had continue to report having very specific problems and stated that her needs were not being met here on the unit. Patient reported that she has never required a significant amount of sleep. She had acknowledged a history of increased spending. She had reported that she had the right to make these decisions.. Mental Status Exam MSE Comments: This is an overweight white woman in hospital scrubs with minimal grooming and eye contact. No abnormal movements noted. Cooperative with exam in mild distress. Speech was normal in rhythm and volume with some slight push in speech but less productive. Her mood described as better. Her affect was less expansive. Her thought process appeared circumstantial. Thought process was linear and organized. Thought content: patient denies suicidal or homicidal ideation, grandiosity appeared less overt today. Still have presence of overvalued ideas. Attention and concentration are intact and memory appeared intermittently reliable but none were formally tested. She is alert and oriented times three. Insight was limited and judgment are limited. Impulse control is impaired. Vitals/I&O/Wt Last Vital Signs Temp 98.4 F 03/09/22 05:50 Pulse 88 03/09/22 05:50 Resp 16 03/09/22 14:00 BP 101/70 03/09/22 05:50 Pulse Ox 98 03/09/22 05:50 O2 Del Method 03/08/22 05:30 Weight last 48 hrs Weight 70.125 kg A&P Assessment and plan (1) Bipolar disorder, curr episode mixed, severe, w/o psychotic features: (2) Psychosis: (3) Hallucinations: (4) Breast mass, right: Qualifiers: Breast mass location: upper outer quadrant Qualified Code(s): N63.11 - Unspecified lump in the right breast, upper outer quadrant (5) Chronic constipation: (6) Traumatic brain injury: (7) Chronic migraine without aura, intractable, with status migrainosus: (8) Bipolar disorder, in full remission, most recent episode manic: Plan This is a 46 year old white woman with a history of trauma, post traumatic stress disorder and genetic loading for mental health, addiction and lethality issues who presents on a 96 hour hold reporting her mother has been the reason for her hospitalizations over the years and denying any issues. 1. Patient given Invega IM 234mg on 03/05/22. 2. Encourage individual, group and milieu therapy 3. Continue q-15 minute check for safety 4. Recommend sober living treatment at the highest level of care to which the patient is willing to commit. We will likely seek placement in adult [place] [facility] facility with temporary guardianship in place. 5. Patient appears to be benefitting from the invega at this time with some improvement in michelle, patient due for 156mg of Invega IM in on 03/12/22. Involuntary Hold Information 96 Hour Hold: 96 Hour Involuntary Admission: Yes 96 Hour Hold Ending Date: 03/02/22 96 Hour Hold Ending Time: 18:45 Attestations NPU Medical Necessity Statement*: Inpatient hospitalization is medically necessary and the clinically appropriate intervention at this time. We will monitor medications and make changes as indicated. Likely length of stay is 10-14 days given need for placement in facility. Coding Level of Care Code Established Pt Acute Manager Practice for Mckenna Angelo Patient Type Established History Problem Focused Exam Problem Focused Medical Decision Making Straight Forward Diagnoses Bipolar disorder, curr episode mixed, severe, w/o psychotic features F31.63 Psychosis F29 Hallucinations R44.3 Breast mass, right N63.11 Breast mass location: upper outer quadrant Chronic constipation K59.09 Traumatic brain injury S06.9X9A Chronic migraine without aura, intractable, with status migrainosus G43.711 Bipolar disorder, in full remission, most recent episode manic F31.74
[2022-03-09] MEDS: acetaminophen 325 mg Tablet 650 MG PO (16:26)
[2022-03-09 21:52] VITALS: BP 81/59; PULSE 87; RESP 20; TEMP 37.1; O2SAT 100
--- NOTE | 2022-03-10 06:20 | PC.NURSE ---
Patient went to bed at 2245 and has slept throughout the night. Currently in bed resting with eyes closed at this time. No signs of distress. Continues with every 15 minute safety checks.
[2022-03-10] MEDS: ibuprofen 600 mg Tablet PO (08:17)
[2022-03-10 14:00] VITALS: BP 112/80; PULSE 91; RESP 20; TEMP 36.7; O2SAT 97
--- NOTE | 2022-03-10 16:33 | W.PM.NPUPNS ---
Subjective NPU Subjective: Patient is a 46-year-old white female with psychotic disorder not otherwise specified and michelle admitted with overall decline in her ability to care for herself. The patient had endorsed that she was relieved after the toilet was apparently fixed next to her room. It had appeared apparent that the patient had been attempting to store and hide a cup from lunch that she was attempting to collect her feces in in an effort to somehow use it and place it near the toilet to help confirm the belief that there was an abnormal smell in her toilet. She had also been found to have a paperclip in her mouth that she had used to cut some clothing. Patient reported no suicidal thoughts at this time. She continued to complain about food and her lack of intake. She had been spending an excessive amount of time in the bathroom today nearly 1-1/2 hours in the shower for unspecified reasons. The patient is requesting a different guardian as she had described having a toxic relationship with her mother. Mental Status Exam MSE Comments: This is an overweight white woman in hospital scrubs with minimal grooming and eye contact. No abnormal movements noted. Cooperative with exam in mild distress. Speech was normal in rhythm and volume with some slight push in speech but less productive. Her mood described as okay. Her affect was subdued and bizarre. Her thought process appeared circumstantial. Thought process was linear and organized. Thought content: patient denies suicidal or homicidal ideation, grandiosity appeared less overt today. Still have presence of overvalued ideas. Attention and concentration are intact and memory appeared intermittently reliable but none were formally tested. She is alert and oriented times three. Insight was limited and judgment are limited. Impulse control is impaired. Vitals/I&O/Wt Last Vital Signs Temp 98.7 F 03/09/22 21:52 Pulse 87 03/09/22 21:52 Resp 20 H 03/09/22 21:52 BP 81/59 03/09/22 21:52 Pulse Ox 100 03/09/22 21:52 O2 Del Method 03/09/22 21:52 A&P Assessment and plan (1) Bipolar disorder, curr episode mixed, severe, w/o psychotic features: (2) Psychosis: (3) Hallucinations: (4) Breast mass, right: Qualifiers: Breast mass location: upper outer quadrant Qualified Code(s): N63.11 - Unspecified lump in the right breast, upper outer quadrant (5) Chronic constipation: (6) Traumatic brain injury: (7) Chronic migraine without aura, intractable, with status migrainosus: (8) Bipolar disorder, in full remission, most recent episode manic: Plan This is a 46 year old white woman with a history of trauma, post traumatic stress disorder and genetic loading for mental health, addiction and lethality issues who presents on a 96 hour hold reporting her mother has been the reason for her hospitalizations over the years and denying any issues. 1. Patient given Invega IM 234mg on 03/05/22. 2. Encourage individual, group and milieu therapy 3. Continue q-15 minute check for safety 4. Recommend sober living treatment at the highest level of care to which the patient is willing to commit. We will likely seek placement in adult [facility] facility with temporary guardianship in place. 5. Patient appears to be benefitting from the invega at this time with some improvement in michelle, patient due for 156mg of Invega IM in on 03/12/22. Involuntary Hold Information 96 Hour Hold: 96 Hour Involuntary Admission: Yes 96 Hour Hold Ending Date: 03/02/22 96 Hour Hold Ending Time: 18:45 Attestations NPU Medical Necessity Statement*: Inpatient hospitalization is medically necessary and the clinically appropriate intervention at this time. We will monitor medications and make changes as indicated. Likely length of stay is 10-14 days given need for placement in facility. Coding Level of Care Code Established Pt Acute Functional Director for Mckenna Angelo Patient Type Established History Problem Focused Exam Problem Focused Medical Decision Making Straight Forward Diagnoses Bipolar disorder, curr episode mixed, severe, w/o psychotic features F31.63 Psychosis F29 Hallucinations R44.3 Breast mass, right N63.11 Breast mass location: upper outer quadrant Chronic constipation K59.09 Traumatic brain injury S06.9X9A Chronic migraine without aura, intractable, with status migrainosus G43.711 Bipolar disorder, in full remission, most recent episode manic F31.74
[2022-03-10 19:43] VITALS: RESP 18
[2022-03-11 06:00] VITALS: RESP 18
--- NOTE | 2022-03-11 08:55 | PC.NURSE ---
Pt was nonverbal during assessment, nodded and shook her head in response to questions. Pt was cooperative with answering questions. Pt nodded when asked about having anxiety. denies SI/HI/AVH, no issues at this time
[2022-03-11 14:00] VITALS: BP 104/71; PULSE 77; RESP 18; TEMP 37; O2SAT 98
--- NOTE | 2022-03-11 15:03 | W.PM.NPUPNS ---
Subjective NPU Subjective: Patient is a 46-year-old white female with psychotic disorder not otherwise specified and michelle admitted with overall decline in her ability to care for herself. The patient continued to display somewhat bizarre and unusual behavior on the inpatient unit. She continued to complain about the food not eating up to her standards. She had stated that she was being poisoned by the cleaning products in the air. The patient had reported that she feels that she could in the hospital. She continue to minimize any thoughts of hurting herself or others despite this claim. Mental Status Exam MSE Comments: This is an overweight white woman in hospital scrubs with minimal grooming and eye contact. No abnormal movements noted. Cooperative with exam in mild distress. Speech was normal in rhythm and volume with some slight push in speech but productive. Her mood described as good. Her affect was subdued and bizarre. Her thought process appeared circumstantial. Thought process was linear and organized. Thought content: patient denies suicidal or homicidal ideation. Her grandiosity and overvalued ideas were prominent. Attention and concentration are intact and memory appeared intermittently reliable but none were formally tested. She is alert and oriented times three. Insight was limited and judgment are limited. Impulse control is impaired. Vitals/I&O/Wt Last Vital Signs Temp 98.1 F 03/10/22 14:00 Pulse 91 03/10/22 14:00 Resp 18 03/11/22 06:00 BP 112/80 03/10/22 14:00 Pulse Ox 97 03/10/22 14:00 O2 Del Method 03/09/22 21:52 A&P Assessment and plan (1) Bipolar disorder, curr episode mixed, severe, w/o psychotic features: (2) Psychosis: (3) Hallucinations: (4) Breast mass, right: Qualifiers: Breast mass location: upper outer quadrant Qualified Code(s): N63.11 - Unspecified lump in the right breast, upper outer quadrant (5) Chronic constipation: (6) Traumatic brain injury: (7) Chronic migraine without aura, intractable, with status migrainosus: (8) Bipolar disorder, in full remission, most recent episode manic: Plan This is a 46 year old white woman with a history of trauma, post traumatic stress disorder and genetic loading for mental health, addiction and lethality issues who presents on a 96 hour hold reporting her mother has been the reason for her hospitalizations over the years and denying any issues. 1. Patient given Invega IM 234mg on 03/05/22. 2. Encourage individual, group and milieu therapy 3. Continue q-15 minute check for safety 4. Recommend sober living treatment at the highest level of care to which the patient is willing to commit. We will likely seek placement in adult correction facility with temporary guardianship in place. 5. Patient appears to be benefitting from the invega at this time with some improvement in michelle, patient due for 156mg of Invega IM in on 03/12/22. Involuntary Hold Information 96 Hour Hold: 96 Hour Involuntary Admission: Yes 96 Hour Hold Ending Date: 03/02/22 96 Hour Hold Ending Time: 18:45 Attestations NPU Medical Necessity Statement*: Inpatient hospitalization is medically necessary and the clinically appropriate intervention at this time. We will monitor medications and make changes as indicated. Likely length of stay is 10-14 days given need for placement in facility. Coding Level of Care Code Established Pt Acute Animal Care Provider for Mckenna Angelo Patient Type Established History Problem Focused Exam Problem Focused Medical Decision Making Straight Forward Diagnoses Bipolar disorder, curr episode mixed, severe, w/o psychotic features F31.63 Psychosis F29 Hallucinations R44.3 Breast mass, right N63.11 Breast mass location: upper outer quadrant Chronic constipation K59.09 Traumatic brain injury S06.9X9A Chronic migraine without aura, intractable, with status migrainosus G43.711 Bipolar disorder, in full remission, most recent episode manic F31.74
[2022-03-12] MEDS: ibuprofen 600 mg Tablet PO (00:43)
--- NOTE | 2022-03-12 07:49 | PC.NURSE ---
pt up pacing hallway & day room, mood is very pleasant, cooperative with care. denies SI/HI/AVH currently
[2022-03-12 14:00] VITALS: BP 101/65; PULSE 95; RESP 18; TEMP 36.6; O2SAT 97
--- NOTE | 2022-03-12 19:00 | W.PM.NPUPNS ---
Subjective NPU Subjective: Patient resents today reporting that she feels just fine. She went on a fairly lengthy rant about how her mother does not take care of her, she take care of her mother. Reported that all cars that she had currently houses residences that she has, RVs etc. everything is due to [employer] taking care of her since she was 4 years old. We discussed the next injection but she had particular feelings about how it should be done. We discussed that she had been excepted and presents with the provider was not sure where that was in the talk about what specifically tomorrow and begin discussing when discharge would be appropriate. She downplays significance of her connecting her feces at 1 point this week. Mental Status Exam MSE Comments: This is an overweight white woman in hospital scrubs with adequate grooming and eye contact. No abnormal movements noted. Cooperative with exam in mild distress. Speech was normal in rhythm rate and volume with some slight pressure. Her mood described as good. Her affect was irritable. Her thought process appeared linear and mostly organized. Thought content: patient denies suicidal or homicidal ideation. Her grandiosity and overvalued ideas were prominent. Attention and concentration are intact and memory appeared intermittently reliable but none were formally tested. She is alert and oriented times three. Insight was limited and judgment are limited. Impulse control is impaired. Vitals/I&O/Wt Last Vital Signs Temp 98.2 F 03/12/22 22:00 Pulse 100 03/12/22 22:00 Resp 18 03/12/22 22:00 BP 105/70 03/12/22 22:00 Pulse Ox 98 03/12/22 22:00 O2 Del Method 03/12/22 22:00 A&P Assessment and plan (1) Bipolar disorder, curr episode mixed, severe, w/o psychotic features: (2) Psychosis: (3) Hallucinations: (4) Breast mass, right: Qualifiers: Breast mass location: upper outer quadrant Qualified Code(s): N63.11 - Unspecified lump in the right breast, upper outer quadrant (5) Chronic constipation: (6) Traumatic brain injury: (7) Chronic migraine without aura, intractable, with status migrainosus: (8) Bipolar disorder, in full remission, most recent episode manic: Plan This is a 46 year old white woman with a history of trauma, post traumatic stress disorder and genetic loading for mental health, addiction and lethality issues who presents on a 96 hour hold reporting her mother has been the reason for her hospitalizations over the years and denying any issues. 1. Patient given Invega IM 234mg on 03/05/22. Give Invega Sustenna next loading dose 156 mg IM to the deltoid today 2. Encourage individual, group and milieu therapy 3. Continue q-15 minute check for safety 4. Recommend sober living treatment at the highest level of care to which the patient is willing to commit. We have found placement in adult [facility] facility with temporary guardianship in place. Involuntary Hold Information 96 Hour Hold: 96 Hour Involuntary Admission: Yes 96 Hour Hold Ending Date: 03/02/22 96 Hour Hold Ending Time: 18:45 Attestations NPU Medical Necessity Statement*: Inpatient hospitalization is medically necessary and the clinically appropriate intervention at this time. We will monitor medications and make changes as indicated. Likely length of stay is 1-5 days given need for placement in facility. Coding Level of Care Code Acute Wastewater Treatment Plant Supervisor for Mckenna Dalyd Diagnoses Bipolar disorder, curr episode mixed, severe, w/o psychotic features F31.63 Psychosis F29 Hallucinations R44.3 Breast mass, right N63.11 Breast mass location: upper outer quadrant Chronic constipation K59.09 Traumatic brain injury S06.9X9A Chronic migraine without aura, intractable, with status migrainosus G43.711 Bipolar disorder, in full remission, most recent episode manic F31.74
[2022-03-12 20:42] VITALS: BP 105/70; PULSE 100; RESP 18; TEMP 36.8; O2SAT 98
[2022-03-12] MEDS: paliperidone palmitate 156 mg Syringe IM (21:50)
[2022-03-12 22:00] VITALS: BP 105/70; PULSE 100; RESP 18; TEMP 36.8; O2SAT 98
[2022-03-13 06:00] VITALS: BP 100/68; PULSE 77; RESP 18; TEMP 36.9; O2SAT 99
[2022-03-13] MEDS: benzocaine 20% 7 gm 1 APPLIC MUCOUS MEM (13:04)
[2022-03-13 14:00] VITALS: BP 134/71; PULSE 68; RESP 16; TEMP 36.9; O2SAT 98
--- NOTE | 2022-03-13 16:38 | P.NPUPN_ITS ---
Subjective NPU Subjective: Patient presents today reporting that she is frustrated with things in general. She did receive her second loading dose of Invega Sustenna but continued to be frustrated because she wanted to discuss a much lower dose. She continues to be focused on her mother as her guardian and the fact that she had not visited her as of yet since guardianship granted. We discussed [facility] and our plan to find out how long they will hold the bed. We discussed activity plan for discharge on Wednesday but ourplan to have her take that spot there. Mental Status Exam MSE Comments: This is an overweight white woman in hospital scrubs with adequate grooming and eye contact. No abnormal movements noted. Cooperative with exam in mild to moderate distress. Speech was normal in rhythm rate and volume with some slight pressure. Her mood described as not happy, her affect was congruent and irritable. Her thought process appeared linear and mostly organized. Thought content: patient denies suicidal or homicidal ideation. Her grandiosity and overvalued ideas were prominent. Attention and concentration are intact and memory appeared intermittently reliable but none were formally tested. She is alert and oriented times three. Insight, judgment and impulse control are impaired. Vitals/I&O/Wt Last Vital Signs Temp 97.6 F 03/13/22 20:22 Pulse 94 03/13/22 20:22 Resp 18 03/13/22 20:22 BP 94/61 03/13/22 20:22 Pulse Ox 98 03/13/22 20:22 O2 Del Method 03/13/22 14:00 A&P Assessment and plan (1) Bipolar disorder, curr episode mixed, severe, w/o psychotic features: (2) Psychosis: (3) Hallucinations: (4) Breast mass, right: Qualifiers: Breast mass location: upper outer quadrant Qualified Code(s): N63.11 - Unspecified lump in the right breast, upper outer quadrant (5) Chronic constipation: (6) Traumatic brain injury: (7) Chronic migraine without aura, intractable, with status migrainosus: (8) Bipolar disorder, in full remission, most recent episode manic: Plan This is a 46 year old white woman with a history of trauma, post traumatic stress disorder and genetic loading for mental health, addiction and lethality issues who presents on a 96 hour hold reporting her mother has been the reason for her hospitalizations over the years and denying any issues. 1. Patient given Invega IM 234mg on 03/05/22. Given Invega Sustenna next loading dose 156 mg IM to the deltoid 03/13/2022 2. Encourage individual, group and milieu therapy 3. Continue q-15 minute check for safety 4. Recommend sober living treatment at the highest level of care to which the patient is willing to commit. We have found placement in adult senior living facility with temporary guardianship in place. Plan to discharge there on Wednesday. Involuntary Hold Information 96 Hour Hold: 96 Hour Involuntary Admission: Yes 96 Hour Hold Ending Date: 03/02/22 96 Hour Hold Ending Time: 18:45 Attestations NPU Medical Necessity Statement*: Inpatient hospitalization is medically necessary and the clinically appropriate intervention at this time. We will monitor medi cations and make changes as indicated. Likely length of stay is 1-3 days given need for placement in facility. Coding Level of Care Code Acute Medical Care Evaluation Specialist for [facility] Diagnoses Bipolar disorder, curr episode mixed, severe, w/o psychotic features F31.63 Psychosis F29 Hallucinations R44.3 Breast mass, right N63.11 Breast mass location: upper outer quadrant Chronic constipation K59.09 Traumatic brain injury S06.9X9A Chronic migraine without aura, intractable, with status migrainosus G43.711 Bipolar disorder, in full remission, most recent episode manic F31.74
[2022-03-13 20:22] VITALS: BP 94/61; PULSE 94; RESP 18; TEMP 36.4; O2SAT 98
[2022-03-14 06:00] VITALS: BP 93/63; PULSE 98; RESP 16; TEMP 36.4; O2SAT 98
[2022-03-14 14:00] VITALS: BP 105/70; PULSE 83; RESP 18; TEMP 36.7; O2SAT 99
--- NOTE | 2022-03-14 18:41 | W.PM.NPUPNS ---
Subjective NPU Subjective: Patient returns today reporting that she is feeling okay. Initially she was calm and collected in the interview but then once again went on a rant about her mother and all the things her mother is doing and trying to do and how her mother would really do anything in the last 42 years if the patient did not do things for her. We continued to discuss the likelihood of [facility]. She was agreeable with that plan and was only interested in making sure the [facility] had a TV so that she could watch the [employer] awards on Wednesday. Otherwise reports a good final medication which is noteworthy because she continued to say that a regular dose of Invega would be overwhelming for her and she had no problems since receiving second loading dose. Mental Status Exam MSE Comments: This is an overweight white woman in hospital scrubs with adequate grooming and eye contact. No abnormal movements noted. Cooperative with exam in mild distress. Speech was normal in rhythm rate and volume. Her mood described as not happy, her affect was congruent and irritable. Her thought process appeared linear and mostly organized. Thought content: patient denies suicidal or homicidal ideation. Her grandiosity and overvalued ideas were prominent. Attention and concentration are intact and memory appeared intermittently reliable but none were formally tested. She is alert and oriented times three. Insight, judgment and impulse control are impaired. Vitals/I&O/Wt Last Vital Signs Temp 97.8 F 03/14/22 22:00 Pulse 86 03/14/22 22:00 Resp 18 03/14/22 22:00 BP 103/68 03/14/22 22:00 Pulse Ox 99 03/14/22 22:00 O2 Del Method 03/14/22 22:00 Weight last 48 hrs Weight 71.668 kg Weight 70.125 kg A&P Assessment and plan (1) Bipolar disorder, curr episode mixed, severe, w/o psychotic features: (2) Psychosis: (3) Hallucinations: (4) Breast mass, right: Qualifiers: Breast mass location: upper outer quadrant Qualified Code(s): N63.11 - Unspecified lump in the right breast, upper outer quadrant (5) Chronic constipation: (6) Traumatic brain injury: (7) Chronic migraine without aura, intractable, with status migrainosus: (8) Bipolar disorder, in full remission, most recent episode manic: Plan This is a 46 year old white woman with a history of trauma, post traumatic stress disorder and genetic loading for mental health, addiction and lethality issues who presents on a 96 hour hold reporting her mother has been the reason for her hospitalizations over the years and denying any issues. 1. Patient given Invega IM 234mg on 03/05/22. Given Invega Sustenna next loading dose 156 mg IM to the deltoid 03/13/2022 2. Encourage individual, group and milieu therapy 3. Continue q-15 minute check for safety 4. Recommend sober living treatment at the highest level of care to which the patient is willing to commit. We have found placement in adult longterm facility with temporary guardianship in place. Plan to discharge there on Wednesday. Involuntary Hold Information 96 Hour Hold: 96 Hour Involuntary Admission: Yes 96 Hour Hold Ending Date: 03/02/22 96 Hour Hold Ending Time: 18:45 Attestations NPU Medical Necessity Statement*: Inpatient hospitalization is medically necessary and the clinically appropriate intervention at this time. We will monitor medications and make changes as indicated. Likely length of stay is 2-3 days given need for placement in facility. Coding Level of Care Code Acute Desktop Specialist for g Fwd Diagnoses Bipolar disorder, curr episode mixed, severe, w/o psychotic features F31.63 Psychosis F29 Hallucinations R44.3 Breast mass, right N63.11 Breast mass location: upper outer quadrant Chronic constipation K59.09 Traumatic brain injury S06.9X9A Chronic migraine without aura, intractable, with status migrainosus G43.711 Bipolar disorder, in full remission, most recent episode manic F31.74
[2022-03-14 22:00] VITALS: BP 103/68; PULSE 86; RESP 18; TEMP 36.6; O2SAT 99
[2022-03-14] MEDS: ibuprofen 600 mg Tablet PO (22:41)
[2022-03-15 06:00] VITALS: BMI 30.2
--- NOTE | 2022-03-15 09:39 | W.PM.NPUPNS ---
Subjective NPU Subjective: Patient presents today reporting that she is doing okay. We discussed the fact that there is still our hope to get her to the [facility] tomorrow we will need to discuss this with them since he has not gotten a response from them since Wednesday. She denies any new issues. She was fixated on things some crayons off the peacock but other than that no new or problematic behaviors. She continues to sleep better and continues to not have complaints since the second loading dose of Invega Sustenna. Mental Status Exam MSE Comments: This is an overweight white woman in hospital scrubs with adequate grooming and eye contact. No abnormal movements noted. Cooperative with exam in mild distress. Speech was normal in rhythm rate and volume. Her mood described as pretty good, her affect was congruent. Her thought process appeared linear and mostly organized. Thought content: patient denies suicidal or homicidal ideation. Her grandiosity and overvalued ideas were not particularly notable. Attention and concentration are intact and memory appeared intermittently reliable but none were formally tested. She is alert and oriented times three. Insight, judgment and impulse control are impaired. Vitals/I&O/Wt Last Vital Signs Temp 97.8 F 03/14/22 22:00 Pulse 86 03/14/22 22:00 Resp 18 03/14/22 22:00 BP 103/68 03/14/22 22:00 Pulse Ox 99 03/14/22 22:00 O2 Del Method 03/14/22 22:00 Weight last 48 hrs Weight 71.668 kg Weight 70.125 kg A&P Assessment and plan (1) Bipolar disorder, curr episode mixed, severe, w/o psychotic features: (2) Psychosis: (3) Hallucinations: (4) Breast mass, right: Qualifiers: Breast mass location: upper outer quadrant Qualified Code(s): N63.11 - Unspecified lump in the right breast, upper outer quadrant (5) Chronic constipation: (6) Traumatic brain injury: (7) Chronic migraine without aura, intractable, with status migrainosus: (8) Bipolar disorder, in full remission, most recent episode manic: Plan This is a 46 year old white woman with a history of trauma, post traumatic stress disorder and genetic loading for mental health, addiction and lethality issues who presents on a 96 hour hold reporting her mother has been the reason for her hospitalizations over the years and denying any issues. 1. Patient given Invega IM 234mg on 03/05/22. Given Invega Sustenna next loading dose 156 mg IM to the deltoid 03/13/2022 2. Encourage individual, group and milieu therapy 3. Continue q-15 minute check for safety 4. Recommend sober living treatment at the highest level of care to which the patient is willing to commit. We [facility] with temporary guardianship in place. Plan to discharge there on tomorrow. Involuntary Hold Information 96 Hour Hold: 96 Hour Involuntary Admission: Yes 96 Hour Hold Ending Date: 03/02/22 96 Hour Hold Ending Time: 18:45 Attestations NPU Medical Necessity Statement*: Inpatient hospitalization is medically necessary and the clinically appropriate intervention at this time. We will monitor medications and make changes as indicated. Likely length of stay is 1-2 days given need for placement in facility. Coding Level of Care Code Acute Insurance Executive for [facility] Fwd Diagnoses Bipolar disorder, curr episode mixed, severe, w/o psychotic features F31.63 Psychosis F29 Hallucinations R44.3 Breast mass, right N63.11 Breast mass location: upper outer quadrant Chronic constipation K59.09 Traumatic brain injury S06.9X9A Chronic migraine without aura, intractable, with status migrainosus G43.711 Bipolar disorder, in full remission, most recent episode manic F31.74
[2022-03-15] MEDS: ibuprofen 600 mg Tablet PO ×2 (13:26→21:05)
[2022-03-15 14:00] VITALS: BP 109/75; PULSE 92; RESP 18; TEMP 36.6; O2SAT 98
[2022-03-15 19:33] VITALS: BP 106/71; PULSE 84; RESP 18; TEMP 36.8; O2SAT 98
--- NOTE | 2022-03-15 22:15 | PC.NURSE ---
Patient became upset and agitated after being told that she could not touch another peer because the peer felt uncomfortable with her doing so. Attempted to explain the situation when the patient became loud and argumentative using foul language with this inspector automatic typewriter. Patient then slammed bathroom door and stated Fuck all of you. I can do what I want when I want. Again this inspector automatic typewriter attempted to redirect the patient and discuss what was appropriate behavior. At that time this inspector automatic typewriter asked her again to calm down so we could talk. Patient was able to stop yelling and engaged in a conversation. Patient reports being frustrated with everyone in the facility from staff to peers. This inspector automatic typewriter again reiterated that she could not go touching other patient's who did not want to be touched. Reminded her she likes her personal space and so do others. Patient then asked if she could take a bath to help with her anxiety. Bath was set-up by staff at that time.
--- NOTE | 2022-03-15 22:45 | PC.NURSE ---
After patient had completed her bath this property underwriter approached patient to speak to her. At that time this property underwriter asked patient if she knew where the batteries were at for the TV remote control. This property underwriter had searched patient's room while patient was in taking her bath before asking patient where the batteries were. Patient stated Yes I know where they are. Why do you need to know? Explained that patient's could not have batteries and I needed her to return them. Patient then stated Well I need a lot of things but you don't see me getting them do you? Again patient was asked to tell staff where the batteries were located. Patient then stated OK then I will tell you where they are. I put them in my soap dispenser in my room. Jokes on you. This property underwriter then went to patient's room and found batteries inside of soap dispenser. After finding batteries, I again approached the patient and reviewed what was acceptable behavior and what would not be tolerated. Patient laughed and said Whatever. Remote control is no longer in dayroom and is located at nurse's station.
[2022-03-16 06:00] VITALS: BP 103/69; PULSE 90; RESP 14; TEMP 36.5; O2SAT 100
--- NOTE | 2022-03-16 07:35 | PC.NURSE ---
SHIFT ASSESSMENT DENIES SI/HI/AVH CURRENTLY...SOMEWHAT EVASIVE WITH ANSWERS, ROLLED EYES & ACTS ANNOYED AT QUESTIONS ASKED BY STAFF. FLAT AFFECT BUT COOPERATIVE WITH STAFF, OBSESSING ABOUT CLEANING THE SALAZAR IN THE HALLWAYS. MILLINERY TEACHER REPORTS PT DID NOT SLEEP MUCH LAST NIGHT.
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
[2022-03-16 11:24] VITALS: BP 103/69; PULSE 90; RESP 14; TEMP 36.5; O2SAT 100
--- NOTE | 2022-03-17 08:07 | DCPLANNER ---
IMM completed with pt's mom and guardian alisha over the phone on 03/16/22 @ [id number].
== END 2022-03-16 15:06 | disposition intermediate care facility (04) | DRG 885 ==
PROVIDERS: Admitting Provider Psychiatry & Neurology Psychiatry; Visit Provider Psychiatry & Neurology Psychiatry
DX: F31.63 Bipolar disorder, current episode mixed, severe, without psychotic features (principal); Z62.820 Parent-biological child conflict; F43.22 Adjustment disorder with anxiety; K59.00 Constipation, unspecified; E03.9 Hypothyroidism, unspecified; N63.11 Unspecified lump in the right breast, upper outer quadrant; F43.10 Post-traumatic stress disorder, unspecified; Z87.820 Personal history of traumatic brain injury; G43.711 Chronic migraine without aura, intractable, with status migrainosus
CPT/HCPCS: 96372; 97150; 97165